=== PATIENT | male | born 1985 | race Caucasian/White ===

== ENCOUNTER 2017-01-10 06:20 | Emergency (ER) | payer MEDICAID ==
[2017-01-10 06:51] VITALS: BP 119/80
[2017-01-10 07:01] LABS: CHLORIDE,CL 105 mEq/L (98-106); SODIUM,NA 140 mEq/L (136-145)
--- NOTE | 2017-01-10 07:08 | EDM.PDOC ---
ED HPI GENERAL MEDICAL PROBLEM - General Chief Complaint: General Stated Complaint: CHEST PAIN Time Seen by Provider: 01/10/17 06:50 Source of Information: Reports: Patient History Limitations: Reports: No Limitations - History of Present Illness INITIAL COMMENTS - FREE TEXT/NARRATIVE: Woke up this morning feeling right sided chest pain. has been on ceftin for URI symptoms and has been having some nausea and upset stomach. No vomiting or diarrhea noted. "I feel weak". Does have a cough sometimes that is dry. Onset: Gradual Location: Reports: Chest, Abdomen Quality: Reports: Ache Associated Symptoms: Reports: Cough, Fever/Chills, Nausea/Vomiting. Denies: Rash Right Chest Pain Score (Numeric/FACES): 5 - Related Data Allergies Allergy/AdvReac Type Severity Reaction Status Date / Time Penicillins Allergy Anaphylactic Verified 01/10/17 06:32 Shock Home Meds: Home Meds buPROPion [Wellbutrin] 75 mg PO DAILY 09/15/16 [History] Cefuroxime [Ceftin] 250 mg PO BID 01/10/17 [History] Past Medical History - Past Health History Medical/Surgical History: Denies Medical/Surgical History Musculoskeletal History: Reports: Other (See Below) Other Musculoskeletal History: BACK INJURY 2002, right wrist swelling Psychiatric History: Reports: Depression - Past Surgical History GI Surgical History: Reports: Appendectomy Social & Family History - Family History Family Medical History: Noncontributory Cardiac: Reports: CAD, Hypertension Endocrine/Metabolic: Reports: Diabetes, type II - Tobacco Use Smoking Status *Q: Current Every Day Smoker Years of Tobacco use: 10 Packs/Tins Daily: 0.3 Used Tobacco, but Quit: No - Caffeine Use Caffeine Use: Reports: Soda - Alcohol Use Days Per Week of Alcohol Use: 0 Number of Drinks Per Day: 3 Total Drinks Per Week: 0 - Recreational Drug Use Recreational Drug Use: No - Living Situation & Occupation Living situation: Reports: , with Significant Other Occupation: Employed ED ROS GENERAL - Review of Systems Review Of Systems: See Below Constitutional: Denies: Fever, Chills Respiratory: Reports: Cough, Sputum (white) Cardiovascular: Reports: Chest Pain (right sided upper side) GI/Abdominal: Reports: Diarrhea, Nausea. Denies: Constipation, Vomiting Musculoskeletal: Reports: No Symptoms Skin: Reports: Rash Neurological: Denies: Headache ED EXAM, GENERAL - Physical Exam Exam: See Below Exam Limited By: No Limitations General Appearance: Alert, WD/WN, Mild Distress Ears: Normal Canal, Hearing Grossly Normal, Normal TMs Nose: Normal Inspection Throat/Mouth: Normal Inspection, Normal Oropharynx Head: Atraumatic, Normocephalic Neck: Normal Inspection, Supple, Non-Tender Respiratory/Chest: No Respiratory Distress, Lungs Clear, Normal Breath Sounds, Other (right upper chest wall is tender with palpation.) Cardiovascular: Regular Rate, Rhythm, No Edema GI/Abdominal: Normal Bowel Sounds, Soft, Non-Tender Extremities: No Pedal Edema Neurological: Alert, Oriented Skin Exam: Warm, Dry Course - Vital Signs Last Recorded V/S: Last Vital Signs Temp 99.9 F 01/10/17 06:48 Pulse 70 01/10/17 06:48 Resp 20 01/10/17 06:48 BP 119/80 01/10/17 06:48 Pulse Ox 95 01/10/17 06:48 - Orders/Labs/Meds Orders: Active Orders 24 hr Category Date Time Status EKG Documentation Completion [RC] STAT Care 01/10/17 06:37 Active Chest 2V [CR] Stat Exams 01/10/17 06:37 Ordered BASIC METABOLIC PANEL,BMP [CHEM] Stat Lab 01/10/17 06:37 Ordered CREATINE KINASE,CK [CHEM] Stat Lab 01/10/17 06:37 Ordered LACTATE DEHYDROGENASE,LDH [CHEM] Stat Lab 01/10/17 06:37 Ordered TROPONIN I [CHEM] Stat Lab 01/10/17 06:37 Ordered Labs: Laboratory Tests 01/10/17 Range/Units 06:40 WBC 8.1 (5.0-10.0) 10^3/uL RBC 4.76 (4.50-6.00) 10^6/uL Hgb 14.3 (14.0-18.0) g/dL Hct 40.9 (40.0-54.0) % MCV 85.9 (82.0-94.0) fL MCH 30.0 (27.0-32.0) pg MCHC 35.0 (33.0-38.0) g/dL RDW Coeff of Cyndi 12.5 (11.0-15.0) % Plt Count 224 (150-400) 10^3/uL Neut % (Auto) 75.2 (35-85) % Lymph % (Auto) 13.1 (10-55) % Rooks % (Auto) 9.0 (0-16) % Eos % (Auto) 2.6 (0-5) % Baso % (Auto) 0.1 (0-3) % Neut # (Auto) 6.06 (1.80-7.00) 10^3/uL Lymph # (Auto) 1.06 (1.00-4.80) 10^3/uL Rooks # (Auto) 0.73 (0.00-0.80) 10^3/uL Eos # (Auto) 0.21 (0.00-0.45) 10^3/uL Baso # (Auto) 0.01 10^3/uL - Re-Assessments/Exams Free Text/Narrative Re-Assessment/Exam: 01/10/17 07:14 Discussed normal EKG, CXR, and labs with pt Departure - Departure Time of Disposition: 07:14 Disposition: Home, Self-Care 01 Condition: good Clinical Impression: Chest wall pain - Discharge Information Forms: ED Department Discharge Additional Instructions: Ibuprophen or tylenol as needed for chest wall pain Stop antibiotics at this time as they may be causing the stomach upset Recheck in clinic if not improving or if symptoms change - Problem List & Annotations (1) Chest wall pain SNOMED Code(s): 790611334 Code(s): R07.89 - OTHER CHEST PAIN Status: Acute Priority: High Current Visit: Yes - Problem List Review Problem List Initiated/Reviewed/Updated: Yes - My Orders Last 24 Hours: My Active Orders 01/10/17 06:37 EKG Documentation Completion [RC] STAT Chest 2V [CR] Stat BASIC METABOLIC PANEL,BMP [CHEM] Stat CREATINE KINASE,CK [CHEM] Stat LACTATE DEHYDROGENASE,LDH [CHEM] Stat TROPONIN I [CHEM] Stat - Assessment/Plan Last 24 Hours: My Active Orders 01/10/17 06:37 EKG Documentation Completion [RC] STAT Chest 2V [CR] Stat BASIC METABOLIC PANEL,BMP [CHEM] Stat CREATINE KINASE,CK [CHEM] Stat LACTATE DEHYDROGENASE,LDH [CHEM] Stat TROPONIN I [CHEM] Stat
== END 2017-01-10 07:20 | disposition home or self-care (01) ==
LOC: CC.ED 06:20
DX: R07.89 Other chest pain (principal); F32.9 Major depressive disorder, single episode, unspecified; F17.210 Nicotine dependence, cigarettes, uncomplicated; Z88.0 Allergy status to penicillin; Z79.899 Other long term (current) drug therapy; Z90.49 Acquired absence of other specified parts of digestive tract
CPT/HCPCS: 36415; 71020; 80048; 82550; 83615; 84484; 85025; 93005; 99284

== ENCOUNTER 2017-05-01 18:55 | Emergency (ER) | payer MEDICAID ==
[2017-05-01] MEDS ORDERED: Acetaminophen/HYDROcodone 325-5 MG Tab PO ONE ×2 (18:56→19:34)
[2017-05-01 19:01] VITALS: BP 135/94
[2017-05-01] MEDS ORDERED: Take Home: Acetaminophen/HYDROcodone 325-5 MG, 2 Tab Pack PO ONE (19:30)
--- NOTE | 2017-05-01 19:35 | EDM.PDOC ---
ED HPI GENERAL MEDICAL PROBLEM - General Chief Complaint: General Stated Complaint: left tooth pain Time Seen by Provider: 05/01/17 19:19 Source of Information: Reports: Patient History Limitations: Reports: No Limitations - History of Present Illness INITIAL COMMENTS - FREE TEXT/NARRATIVE: JAQUELIN IS A 31 YO MALE WHO PRESENTS TO THE ER WITH COMPLAINTS OF UNBEARABLE PAIN SECONDARY TO DENTAL ABSCESS. STATES HE HAD A COUPLE TEETH PULLED ON FRIDAY AND DEVELOPED AN ABSCESS SINCE. STATES HE WAS SEEN BY DR. ROUSSEAU TODAY AND WAS GIVEN TORADOL AND ROCEPHIN INJECTION. STATES HE WAS SENT HOME WITH BACTRIM AND TORADOL TO BE TAKEN ORALLY. STATES HE COULDN'T BEAR THE PAIN ANYMORE AND WAS SEEN EARLY AFTERNOON TODAY BY THE DENTIST WHO DID A DENTAL BLOCK. STATES HE GOT ABOUT 3 HOURS OF RELIEF AND WAS ABLE TO SLEEP. SINCE THEN THE PAIN HAS WORSENED AGAIN. Left Tooth/Teeth Pain Score (Numeric/FACES): 10 - Related Data Allergies Allergy/AdvReac Type Severity Reaction Status Date / Time Penicillins Allergy Anaphylactic Verified 05/01/17 19:01 Shock Home Meds: Home Meds buPROPion [Wellbutrin] 75 mg PO DAILY 09/15/16 [History] Clindamycin HCl 150 mg PO TID 05/01/17 [History] Ketorolac [Toradol] 10 mg PO QID 05/01/17 [History] Past Medical History - Past Health History Medical/Surgical History: Denies Medical/Surgical History Musculoskeletal History: Reports: Other (See Below) Other Musculoskeletal History: BACK INJURY 2002, right wrist swelling Psychiatric History: Reports: Depression - Past Surgical History GI Surgical History: Reports: Appendectomy Social & Family History - Family History Family Medical History: Noncontributory Cardiac: Reports: CAD, Hypertension Endocrine/Metabolic: Reports: Diabetes, type II - Tobacco Use Smoking Status *Q: Current Every Day Smoker Years of Tobacco use: 14 Packs/Tins Daily: 0.2 Used Tobacco, but Quit: No - Caffeine Use Caffeine Use: Reports: Soda - Alcohol Use Days Per Week of Alcohol Use: 0 Number of Drinks Per Day: 3 Total Drinks Per Week: 0 - Recreational Drug Use Recreational Drug Use: No - Living Situation & Occupation Living situation: Reports: , with Significant Other Occupation: Employed ED ROS GENERAL - Review of Systems Review Of Systems: ROS reveals no pertinent complaints other than HPI. HEENT: Reports: Dental Pain ED EXAM, GENERAL - Physical Exam Exam: See Below Exam Limited By: No Limitations General Appearance: Alert, Mild Distress, Moderate Distress Ears: Normal External Exam, Normal Canal, Hearing Grossly Normal, Normal TMs Nose: Normal Inspection, No Blood Throat/Mouth: Normal Inspection, Normal Oropharynx, No Airway Compromise, Other (SIGNIFICANT DECAY OF TEETH, MULTIPLE BROKEN TEETH WITH TENDERNESS TO LEFT LOWER PREMOLAR. DENTAL ABSCESS FORMING. TENDERNESS WITH PALPATION ALONG LOWER JAW LINE. ) Head: Atraumatic, Facial Tenderness Neck: Normal Inspection, Supple, Non-Tender Respiratory/Chest: No Respiratory Distress, Lungs Clear Cardiovascular: Regular Rate, Rhythm, No Murmur Skin Exam: Warm, Dry, Intact, Normal Color. No: Increased Warmth Course - Vital Signs Last Recorded V/S: Last Vital Signs Temp 98.9 F 05/01/17 18:58 Pulse 92 05/01/17 18:58 Resp 20 05/01/17 18:58 BP 135/94 H 05/01/17 18:58 Pulse Ox 97 05/01/17 18:58 Departure - Departure Time of Disposition: 19:31 Disposition: Home, Self-Care 01 Condition: Good Clinical Impression: Broken or cracked tooth, nontraumatic, Tooth abscess - Discharge Information Instructions: Dental Abscess, [id number] Referrals: Karly Marie PA [Primary Care Provider] - 1 Day Additional Instructions: 1) NORCO 5/325 - 1 TABLET EVERY 4 HOURS NEEDED FOR PAIN 2) CONTINUE TAKING CLINDAMYCIN 3) RECOMMEND TAKING THE TORADOL 10MG EVERY 6-8 HOURS NEEDED FOR PAIN WELL 4) FOLLOW UP WITH PRIMARY PROVIDER TOMORROW FOR RECHECK IF ONGOING DISCOMFORT 5) IF ANY QUESTIONS OR CONCERNS, MAY CALL [phone] OR RETURN TO ER - Problem List & Annotations (1) Broken or cracked tooth, nontraumatic SNOMED Code(s): 683307175 Code(s): K03.81 - CRACKED TOOTH Status: Acute Current Visit: Yes (2) Tooth abscess SNOMED Code(s): 341747394 Code(s): K04.7 - PERIAPICAL ABSCESS WITHOUT SINUS Status: Acute Current Visit: Yes - Problem List Review Problem List Initiated/Reviewed/Updated: Yes - Assessment/Plan Plan: REVIEWED DR. ROUSSEAU'S NOTE FROM EARLIER TODAY. ADVISE SEEING PRIMARY PROVIDER TOMORROW FOR FOLLOW UP. MAY TAKE NORCO NEEDED FOR DISCOMFORT EVERY 4 HOURS, 4 TABLETS DISPENSED. FINISH ANTIBIOTICS PRESCRIBED BY DENTIST TODAY WELL.
== END 2017-05-01 19:45 | disposition home or self-care (01) ==
LOC: CC.ED 18:55
DX: K04.7 Periapical abscess without sinus (principal); K03.81 Cracked tooth; F32.9 Major depressive disorder, single episode, unspecified; F17.210 Nicotine dependence, cigarettes, uncomplicated; Z90.49 Acquired absence of other specified parts of digestive tract; Z79.899 Other long term (current) drug therapy; Z88.0 Allergy status to penicillin
CPT/HCPCS: 99282; A9270

== ENCOUNTER 2017-07-18 15:08 | Emergency (ER) | payer MEDICAID ==
--- NOTE | 2017-07-18 15:27 | EDM.PDOC ---
ED HPI GENERAL MEDICAL PROBLEM - General Chief Complaint: Chest Pain Stated Complaint: CP Time Seen by Provider: 07/18/17 15:27 Source of Information: Reports: Patient History Limitations: Reports: No Limitations - History of Present Illness INITIAL COMMENTS - FREE TEXT/NARRATIVE: Rey is a 31 year old male who presents to the ER with complaints of mid sternal chest pain radiating to his left arm. He reports it started yesterday evening around 1900 and has been constant since. He reports he does feel some shortness of breath. Reports he was able to work today, but had to take multiple breaks as he felt fatigued. He reports he also feels weak. He reports he struggled to pick up man larger boxes today that he normally wouldn't have a problem with. Denies any fever, chills, diaphoresis, nausea, vomiting, diarrhea , urinary symptoms, or recent illness. Has not taken anything prior to ER presentation. No identified alleviating or aggravating factors. Reports he did not eat anything out of the ordinary. Reports he did not eat larger Thanksgiving meal yesterday. Denies history of reflux. He does report that he is supposed to be on an anxiety medication daily, but he has "not been very good about taking it." He does report increased stress and anxiety in his life recently. Onset Date: 07/17/17 Onset Time: 19:00 Duration: Constant Location: Reports: Chest Quality: Reports: Ache, Sharp Severity: Moderate Improves with: Reports: None Worsens with: Reports: None Associated Symptoms: Reports: Chest Pain, Shortness of Breath, Weakness. Denies : Confusion, Cough, cough w sputum, Diaphoresis, Fever/Chills, Headaches, Loss of Appetite, Malaise, Nausea/Vomiting, Rash, Seizure, Syncope Upper Chest Pain Score (Numeric/FACES): 6 - Related Data Allergies Allergy/AdvReac Type Severity Reaction Status Date / Time Penicillins Allergy Anaphylactic Verified 07/18/17 15:45 Shock Home Meds: Home Meds buPROPion [Wellbutrin] 75 mg PO DAILY 09/15/16 [History] LORazepam [Ativan] 0.5 mg PO TID PRN #10 tablet 07/18/17 [Rx] Past Medical History - Past Health History Medical/Surgical History: Denies Medical/Surgical History Musculoskeletal History: Reports: Other (See Below) Other Musculoskeletal History: BACK INJURY 2002, right wrist swelling Psychiatric History: Reports: Depression - Past Surgical History GI Surgical History: Reports: Appendectomy Social & Family History - Family History Family Medical History: Noncontributory Cardiac: Reports: CAD, Hypertension Endocrine/Metabolic: Reports: Diabetes, type II - Tobacco Use Smoking Status *Q: Current Every Day Smoker Years of Tobacco use: 14 Packs/Tins Daily: 0.2 Used Tobacco, but Quit: No - Caffeine Use Caffeine Use: Reports: Soda - Alcohol Use Days Per Week of Alcohol Use: 0 Number of Drinks Per Day: 3 Total Drinks Per Week: 0 - Recreational Drug Use Recreational Drug Use: No - Living Situation & Occupation Living situation: Reports: , with Significant Other Occupation: Employed ED ROS GENERAL - Review of Systems Review Of Systems: See Below Constitutional: Reports: Weakness, Fatigue. Denies: Fever, Chills, Malaise, Diaphoresis HEENT: Reports: No Symptoms. Denies: Ear Pain, Rhinitis, Sinus Problem, Vision Change Respiratory: Reports: Shortness of Breath. Denies: Wheezing, Pleuritic Chest Pain, Cough, Sputum, Hemoptysis Cardiovascular: Reports: Chest Pain, Dyspnea on Exertion. Denies: Blood Pressure Problem, Claudication, Edema, Lightheadedness, Orthopnea, Palpitations , Syncope Endocrine: Reports: Fatigue GI/Abdominal: Denies: Abdominal Pain, Anorexia, Constipation, Diarrhea, Decreased Appetite, Hematemesis, Hematochezia, Melena, Nausea, Vomiting : Reports: No Symptoms Neurological: Reports: No Symptoms. Denies: Confusion, Dizziness, Headache, Numbness, Syncope, Tingling Psychiatric: Reports: Anxiety, Depression Hematologic/Lymphatic: Reports: No Symptoms Immunologic: Reports: No Symptoms ED EXAM, GENERAL - Physical Exam Exam: See Below Exam Limited By: No Limitations General Appearance: Alert, WD/WN, No Apparent Distress Eye Exam: Bilateral Eye: EOMI, Normal Fundi, Normal Inspection, PERRL Head: Atraumatic, Normocephalic Respiratory/Chest: No Respiratory Distress, Lungs Clear, Normal Breath Sounds, No Accessory Muscle Use, Chest Non-Tender Cardiovascular: Normal Peripheral Pulses, Regular Rate, Rhythm, No Edema, No Gallop, No JVD, No Murmur, No Rub GI/Abdominal: Normal Bowel Sounds, Soft, Non-Tender, No Organomegaly, No Distention, No Abnormal Bruit, No Mass Back Exam: Normal Inspection, Full Range of Motion, NT Extremities: Normal Inspection, Normal Range of Motion, Non-Tender, Normal Capillary Refill, No Pedal Edema Neurological: Alert, Oriented, CN II-XII Intact, Normal Cognition, Normal Gait, Normal Reflexes, No Motor/Sensory Deficits Psychiatric: Anxious Skin Exam: Warm, Dry, Intact, Normal Color, No Rash Course - Vital Signs Last Recorded V/S: Last Vital Signs Temp 97.4 F 07/18/17 15:11 Pulse 49 L 07/18/17 16:04 Resp 18 07/18/17 16:04 BP 121/80 07/18/17 16:04 Pulse Ox 96 07/18/17 16:04 - Orders/Labs/Meds Labs: Laboratory Tests 07/18/17 07/18/17 07/18/17 Range/Units 15:14 15:14 15:14 WBC 6.6 (5.0-10.0) 10^3/uL RBC 4.86 (4.50-6.00) 10^6/uL Hgb 14.5 (14.0-18.0) g/dL Hct 42.1 (40.0-54.0) % MCV 86.6 (82.0-94.0) fL MCH 29.8 (27.0-32.0) pg MCHC 34.4 (33.0-38.0) g/dL RDW Coeff of Cyndi 13.5 (11.0-15.0) % Plt Count 241 (150-400) 10^3/uL Neut % (Auto) 59.1 (35-85) % Lymph % (Auto) 27.9 (10-55) % Elk % (Auto) 8.9 (0-16) % Eos % (Auto) 3.9 (0-5) % Baso % (Auto) 0.2 (0-3) % Neut # (Auto) 3.90 (1.80-7.00) 10^3/uL Lymph # (Auto) 1.84 (1.00-4.80) 10^3/uL Elk # (Auto) 0.59 (0.00-0.80) 10^3/uL Eos # (Auto) 0.26 (0.00-0.45) 10^3/uL Baso # (Auto) 0.01 10^3/uL PT 10.5 (9.7-12.3) SEC INR 0.97 (0.92-1.18) APTT 24.1 L (24.5-30.9) SEC Sodium 143 (136-145) mEq/L Potassium 4.1 (3.5-5.0) mEq/L Chloride 107 H (98-106) mEq/L Carbon Dioxide 29 (21-32) mmol/L BUN 15 (7-18) mg/dL Creatinine 1.2 (0.7-1.3) mg/dL Est Cr Clr Drug Dosing 102.75 mL/min Estimated GFR (MDRD) > 60 (>=60) mL/min Glucose 86 (75-99) mg/dL Calcium 9.2 (8.4-10.1) mg/dL Lactate Dehydrogenase 180 (100-190) U/L Creatine Kinase 211 (35-232) U/L Troponin I < 0.017 (0.00-0.06) ng/mL - Re-Assessments/Exams Free Text/Narrative Re-Assessment/Exam: 07/18/17 16:20 Discussed labs, EKG, and CXR with patient. Everything looks normal. Patient's vital signs have remained normal throughout stay. Departure - Departure Time of Disposition: 16:24 Disposition: Home, Self-Care 01 Condition: Good Clinical Impression: Chest pain due to psychological stress, Anxiety Prescriptions: LORazepam [Ativan] 0.5 mg PO TID PRN #10 tablet PRN Reason: Anxiety Instructions: Panic Attacks, [id number], Nonspecific Chest Pain Referrals: Karly Marie PA [Primary Care Provider] - Forms: ED Department Discharge Additional Instructions: Chest pain is not of cardiac origin. Discussed that chest pain is likely related to anxiety. Ativan as needed to use through the weekend for anxiety and panic attack type symptoms. Discussed that wellbutrin needs to be taken daily to be effective. Tylenol or ibuprofen as needed for cifuentes May trial taking some OTC omeprazole for the next week if chest pain continues. Follow up with primary care provider to address anxiety.
[2017-07-18 15:35] LABS: CHLORIDE,CL 107 mEq/L (98-106); SODIUM,NA 143 mEq/L (136-145)
[2017-07-18 16:05] VITALS: BP 121/80
== END 2017-07-18 16:34 | disposition home or self-care (01) ==
LOC: CC.ED 15:08
DX: R07.2 Precordial pain (principal); F41.9 Anxiety disorder, unspecified; F32.9 Major depressive disorder, single episode, unspecified; F17.210 Nicotine dependence, cigarettes, uncomplicated; Z79.899 Other long term (current) drug therapy; Z88.0 Allergy status to penicillin
CPT/HCPCS: 36415; 71020; 80048; 82550; 83615; 84484; 85025; 85610; 85730; 93005; 99285

== ENCOUNTER 2017-07-27 03:30 | Emergency (ER) | payer MEDICAID ==
[2017-07-27 03:50] VITALS: BP 134/94
[2017-07-27] MEDS ORDERED: Lactated Ringers 1,000 ML IV SCH (04:15)
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
[2017-07-27 07:27] LABS: CHLORIDE,CL 103 mEq/L (98-106); SODIUM,NA 141 mEq/L (136-145)
== END 2017-07-27 11:40 ==
LOC: CC.ED 03:30
DX: R45.851 Suicidal ideations (principal); F41.9 Anxiety disorder, unspecified; F32.9 Major depressive disorder, single episode, unspecified; Z88.0 Allergy status to penicillin; E66.9 Obesity, unspecified; F17.210 Nicotine dependence, cigarettes, uncomplicated
CPT/HCPCS: 36415; 80053; 80305; 81001; 85025; 86140; 96360; 96361; 99284; J7120

== ENCOUNTER 2020-07-07 15:58 | Emergency (ER) | payer SELFPAY ==
[2020-07-07 16:06] VITALS: BP 135/85; PULSE 60
[2020-07-07 16:53] LABS: CHLORIDE,CL 102 mEq/L (98-106); SODIUM,NA 139 mEq/L (136-145)
--- NOTE | 2020-07-07 17:07 | EDM.PDOC ---
ED HPI GENERAL MEDICAL PROBLEM - General Chief Complaint: General Stated Complaint: SOB, Chest Congestion Time Seen by Provider: 07/07/20 16:14 Source of Information: Reports: Patient History Limitations: Reports: No Limitations - History of Present Illness INITIAL COMMENTS - FREE TEXT/NARRATIVE: This patient is a 34 year old male that presents to the ER. Patient reports for 3 days having headache, congestion, cough dry, chills, fatigue, chest pain. Onset Date: 07/04/20 Duration: Day(s): (3) Location: Reports: Head, Chest Quality: Reports: Ache Severity: Mild Improves with: Reports: None Worsens with: Reports: None Associated Symptoms: Reports: Chest Pain, Cough, Fever/Chills, Headaches, Malaise. Denies: Confusion, cough w sputum, Diaphoresis, Loss of Appetite, Nausea/Vomiting, Rash, Seizure, Shortness of Breath, Syncope, Weakness chest Pain Score (Numeric/FACES): 5 - Related Data Allergies Allergy/AdvReac Type Severity Reaction Status Date / Time Penicillins Allergy Anaphylactic Verified 07/07/20 16:06 Shock Home Meds: Home Meds . [No Known Home Meds] 07/07/20 [History] Past Medical History - Past Health History Medical/Surgical History: Denies Medical/Surgical History Gastrointestinal History: Reports: GERD Musculoskeletal History: Reports: Other (See Below) Other Musculoskeletal History: BACK INJURY 2002, right wrist swelling Neurological History: Reports: Concussion Psychiatric History: Reports: Anxiety, Depression Endocrine/Metabolic History: Reports: Obesity/BMI 30+ - Past Surgical History HEENT Surgical History: Reports: Myringotomy w Tube(s), Tonsillectomy GI Surgical History: Reports: Appendectomy Endocrine Surgical History: Reports: None Neurological Surgical History: Reports: None Musculoskeletal Surgical History: Reports: None Social & Family History - Family History Family Medical History: No Pertinent Family History Cardiac: Reports: CAD, Hypertension Endocrine/Metabolic: Reports: Diabetes, type II - Tobacco Use Tobacco Use Status *Q: Current Every Day Tobacco User Years of Tobacco use: 15 Packs/Tins Daily: 0.5 - Caffeine Use Caffeine Use: Reports: None - Recreational Drug Use Recreational Drug Use: No - Living Situation & Occupation Living situation: Reports: , with Significant Other Occupation: Employed ED ROS GENERAL - Review of Systems Review Of Systems: See Below Constitutional: Reports: Fever, Chills, Malaise, Fatigue HEENT: Reports: Rhinitis, Sinus Problem Respiratory: Reports: Pleuritic Chest Pain, Cough. Denies: Shortness of Breath, Wheezing, Sputum Cardiovascular: Reports: Chest Pain. Denies: Dyspnea on Exertion, L ightheadedness, Palpitations, Syncope Endocrine: Reports: No Symptoms GI/Abdominal: Reports: No Symptoms. Denies: Abdominal Pain, Nausea, Vomiting : Reports: No Symptoms Musculoskeletal: Reports: No Symptoms Skin: Reports: No Symptoms Neurological: Reports: Headache Psychiatric: Reports: No Symptoms Hematologic/Lymphatic: Reports: No Symptoms Immunologic: Reports: No Symptoms ED EXAM, GENERAL - Physical Exam Exam: See Below Exam Limited By: Uncooperative General Appearance: WD/WN, No Apparent Distress Eye Exam: Bilateral Eye: Normal Inspection, PERRL Ears: Normal External Exam, Normal Canal, Hearing Grossly Normal, Normal TMs Ear Exam: Bilateral Ear: Auricle Normal, Canal Normal, TM normal Nose: Normal Inspection, Normal Mucosa, No Blood Throat/Mouth: Normal Inspection, Normal Lips, Normal Teeth, Normal Gums, Normal Oropharynx, Normal Voice, No Airway Compromise Head: Atraumatic, Normocephalic Neck: Normal Inspection, Supple, Non-Tender, Full Range of Motion Respiratory/Chest: No Respiratory Distress, Lungs Clear, Normal Breath Sounds, No Accessory Muscle Use, Chest Non-Tender Cardiovascular: Normal Peripheral Pulses, Regular Rate, Rhythm, No Edema, No Gallop, No JVD, No Murmur, No Rub Peripheral Pulses: 2+: Radial (L), Radial (R), Posterior Tibial (L), Posterior Tibial (R) GI/Abdominal: Soft, Non-Tender Back Exam: Normal Inspection, Full Range of Motion Extremities: Normal Inspection, Normal Range of Motion, Non-Tender, No Pedal Edema, Normal Capillary Refill Neurological: Alert, Normal Cognition, Normal Gait Psychiatric: Anxious Skin Exam: Warm, Dry, Intact, Normal Color, No Rash Lymphatic: No Adenopathy Course - Vital Signs Last Recorded V/S: Last Vital Signs Temp 97.6 F 07/07/20 16:00 Pulse 60 07/07/20 16:00 Resp 18 07/07/20 16:00 BP 135/85 07/07/20 16:00 Pulse Ox 99 07/07/20 16:00 - Orders/Labs/Meds Orders: Active Orders 24 hr Category Date Time Status Chest 2V [CR] Stat Exams 07/07/20 15:59 Taken Labs: Laboratory Tests 07/07/20 07/07/20 07/07/20 Range/Units 15:59 16:16 16:16 WBC 5.7 (5.0-10.0) 10^3/uL RBC 4.86 (4.50-6.00) 10^6/uL Hgb 14.5 (14.0-18.0) g/dL Hct 41.6 (40.0-54.0) % MCV 85.6 (82.0-94.0) fL MCH 29.8 (27.0-32.0) pg MCHC 34.9 (33.0-38.0) g/dL RDW Coeff of Cyndi 13.0 (11.0-15.0) % Plt Count 244 (150-400) 10^3/uL Neut % (Auto) 57.5 (35-85) % Lymph % (Auto) 30.8 (10-55) % [place] % (Auto) 8.6 (0-16) % Eos % (Auto) 2.6 (0-5) % Baso % (Auto) 0.5 (0-3) % Neut # (Auto) 3.29 (1.80-7.00) 10^3/uL Lymph # (Auto) 1.76 (1.00-4.80) 10^3/uL [place] # (Auto) 0.49 (0.00-0.80) 10^3/uL Eos # (Auto) 0.15 (0.00-0.45) 10^3/uL Baso # (Auto) 0.03 10^3/uL Sodium 139 (136-145) mEq/L Potassium 3.5 (3.5-5.0) mEq/L Chloride 102 (98-106) mEq/L Carbon Dioxide 27 (21-32) mmol/L BUN 15 (7-18) mg/dL Creatinine 0.9 (0.7-1.3) mg/dL Est Cr Clr Drug Dosing 133.19 mL/min Estimated GFR (MDRD) > 60 (>=60) mL/min Glucose 90 (75-99) mg/dL Calcium 8.9 (8.4-10.1) mg/dL Total Bilirubin 0.4 (0.0-1.0) mg/dL AST 24 (15-37) U/L ALT 29 (12-78) U/L Alkaline Phosphatase 79 (46-116) U/L Creatine Kinase 257 H (35-232) U/L Troponin I < 0.017 (0.00-0.06) ng/mL Total Protein 7.6 (6.4-8.2) g/dL Albumin 4.0 (3.4-5.0) g/dL SARS CoV-2 RNA Rapid ZACEKRY Negative (NEGATIVE) - Re-Assessments/Exams Free Text/Narrative Re-Assessment/Exam: 07/07/20 17:11 Wells score 0. Heart score 0. Oxygen saturation is 99% on RA. No distress, not toxic appearing. Departure - Departure Time of Disposition: 17:02 Disposition: Home, Self-Care 01 Condition: Good Clinical Impression: Viral URI, Anxiety Fatigue Qualifiers: Fatigue type: unspecified Qualified Code(s): R53.83 - Other fatigue Chest pain Qualifiers: Chest pain type: unspecified Qualified Code(s): R07.9 - Chest pain, unspecified - Discharge Information *PRESCRIPTION DRUG MONITORING PROGRAM REVIEWED*: Not Applicable *COPY OF PRESCRIPTION DRUG MONITORING REPORT IN PATIENT STEVE: Not Applicable Instructions: Fatigue, Viral Respiratory Infection, [id number], Nonspecific Chest Pain, Adult Referrals: Karly Marie PA [Primary Care Provider] - Forms: ED Department Discharge Additional Instructions: Followup with your primary care provider Return to the ER for worsening of condition or any emergent concerns OTC medications as needed Sepsis Event Note (ED) - Evaluation Sepsis Screening Result: No Definite Risk - Focused Exam Vital Signs: Vital Signs Temp Pulse Resp BP Pulse Ox 07/07/20 16:00 97.6 F 60 18 135/85 99 - My Orders Last 24 Hours: My Active Orders 07/07/20 15:59 Chest 2V [CR] Stat - Assessment/Plan Last 24 Hours: My Active Orders 07/07/20 15:59 Chest 2V [CR] Stat Plan: PLEASE SEE RN NOTE FOR PFSH.
== END 2020-07-07 17:46 | disposition home or self-care (01) ==
LOC: CC.ED 15:58
DX: J06.9 Acute upper respiratory infection, unspecified (principal); R53.83 Other fatigue; R07.9 Chest pain, unspecified; F41.9 Anxiety disorder, unspecified; E66.9 Obesity, unspecified; F17.210 Nicotine dependence, cigarettes, uncomplicated; Z68.38 Body mass index [BMI] 38.0-38.9, adult; Z20.828 Contact with and (suspected) exposure to other viral communicable diseases; Z88.0 Allergy status to penicillin
CPT/HCPCS: 36415; 71046; 80053; 82550; 84484; 85025; 93005; 99285-25; U0002

== ENCOUNTER 2020-09-06 20:33 | Emergency (ER) | payer OTHER, BC ==
[2020-09-06 20:38] VITALS: BP 145/95; PULSE 64
[2020-09-06] MEDS ORDERED: Ketorolac 10 MG Tab ONE (20:49)
[2020-09-06] MEDS ORDERED: Cyclobenzaprine 10 MG Tab ONE (20:49)
[2020-09-06] MEDS ORDERED: Orphenadrine 60 MG/2 ML Inj IM ONE (20:50)
[2020-09-06] MEDS ORDERED: Ketorolac 60 MG/2 ML SDV IM ONE (20:50)
[2020-09-06] MEDS ORDERED: Take Home: Ketorolac 10 MG Tab, 4 Tab Pack PO ONE (20:55)
[2020-09-06] MEDS ORDERED: Take Home: Cyclobenzaprine 10 MG Tab, 4 Tab Pack PO ONE (20:55)
--- NOTE | 2020-09-06 20:57 | EDM.PDOC ---
ED HPI GENERAL MEDICAL PROBLEM - General Chief Complaint: Back Pain or Injury Stated Complaint: back pain Time Seen by Provider: 09/06/20 20:45 Source of Information: Reports: Patient History Limitations: Reports: No Limitations - History of Present Illness INITIAL COMMENTS - FREE TEXT/NARRATIVE: Rey is a 35 year old who presents to ER with complaints of right lower back pain. 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 States several bags were stuck together and he "must have twisted wrong". Has had increasing back pain to the right lower lumbar region and hip. Complains of pain that "tingles in to his right buttock with sitting". Difficulty with fully standing from a chair or extension of his back. Onset: Today, Gradual Duration: Hour(s):, Getting Worse Location: Reports: Back Quality: Reports: Ache Severity: Moderate Improves with: Reports: Rest Worsens with: Reports: Movement Context: Reports: Lifting Associated Symptoms: Reports: No Other Symptoms Treatments [employer] SALES: Reports: NSAIDS Right Lower Back Pain Score (Numeric/FACES): 7 - Related Data Allergies Allergy/AdvReac Type Severity Reaction Status Date / Time Penicillins Allergy Anaphylactic Verified 09/06/20 20:38 Shock Home Meds: Home Meds Cyclobenzaprine [Flexeril] 10 mg PO TID PRN #30 tab 09/06/20 [Rx] Ketorolac [Toradol] 10 mg PO Q6H PRN #20 tab 09/06/20 [Rx] Past Medical History - Past Health History Medical/Surgical History: Denies Medical/Surgical History Gastrointestinal History: Reports: GERD Musculoskeletal History: Reports: Other (See Below) Other Musculoskeletal History: BACK INJURY 2002, right wrist swelling Neurological History: Reports: Concussion Psychiatric History: Reports: Anxiety, Depression Endocrine/Metabolic History: Reports: Obesity/BMI 30+ - Past Surgical History HEENT Surgical History: Reports: Myringotomy w Tube(s), Tonsillectomy GI Surgical History: Reports: Appendectomy Endocrine Surgical History: Reports: None Neurological Surgical History: Reports: None Musculoskeletal Surgical History: Reports: None Social & Family History - Family History Family Medical History: No Pertinent Family History Cardiac: Reports: CAD, Hypertension Endocrine/Metabolic: Reports: Diabetes, type II - Tobacco Use Tobacco Use Status *Q: Current Every Day Tobacco User - Caffeine Use Caffeine Use: Reports: None - Living Situation & Occupation Living situation: Reports: , with Significant Other Occupation: Employed ED ROS GENERAL - Review of Systems Review Of Systems: See Below Constitutional: Reports: No Symptoms HEENT: Reports: No Symptoms Respiratory: Denies: Shortness of Breath Cardiovascular: Denies: Chest Pain, Edema, Lightheadedness Endocrine: Denies: Fatigue GI/Abdominal: Denies: Abdominal Pain, Nausea, Vomiting : Reports: No Symptoms Musculoskeletal: Reports: Back Pain Skin: Reports: No Symptoms ED EXAM,LOWER BACK PAIN/INJURY - Physical Exam Exam: See Below Exam Limited By: No Limitations General Appearance: Alert, WD/WN, Mild Distress Head: Normocephalic Neck: Normal Inspection, Supple, Non-Tender Respiratory/Chest: No Respiratory Distress, Lungs Clear, Normal Breath Sounds Cardiovascular: Regular Rate, Rhythm Back Exam: Normal Inspection, Decreased Range of Motion, Muscle Spasm, Paraspinal Tenderness (discomfort to right lumbar paraspinal region. Pain with extension. Able to flex 45 degrees before pain. Strength is good and equal in lower extremities. ). No: Vertebral Tenderness Extremities: Normal Inspection, No Pedal Edema Skin Exam: Warm, Dry Course - Vital Signs Last Recorded V/S: Last Vital Signs Temp 96.6 F L 09/06/20 20:34 Pulse 64 09/06/20 20:34 Resp 15 09/06/20 20:34 BP 145/95 H 09/06/20 20:34 Pulse Ox 99 09/06/20 20:34 Departure - Departure Time of Disposition: 20:57 Disposition: Home, Self-Care 01 Condition: Fair Clinical Impression: Low back pain - Discharge Information *PRESCRIPTION DRUG MONITORING PROGRAM REVIEWED*: No *COPY OF PRESCRIPTION DRUG MONITORING REPORT IN PATIENT STEVE: No Instructions: Acute Back Pain, Adult Referrals: PCP,Unknown [Primary Care Provider] - Additional Instructions: 1. Rest 2. Ice frequently tonight 3. Flexeril 10 mg every 8 hours as needed for muscle spasms 4. Toradol 10 mg every 6 hours as needed for pain/inflammation 5. Follow up next Friday am in NR for recheck 6. No lifting more than 20# until recheck visit Sepsis Event Note (ED) - Evaluation Sepsis Screening Result: No Definite Risk - Focused Exam Vital Signs: Vital Signs Temp Pulse Resp BP Pulse Ox 09/06/20 20:34 96.6 F L 64 15 145/95 H 99
== END 2020-09-06 21:25 | disposition home or self-care (01) ==
LOC: CC.ED 20:33
DX: M54.5 Low back pain (principal); M25.551 Pain in right hip; E66.9 Obesity, unspecified; F17.200 Nicotine dependence, unspecified, uncomplicated; Z88.0 Allergy status to penicillin; Z68.41 Body mass index [BMI] 40.0-44.9, adult
CPT/HCPCS: 96372; 99283; A9270-GY; J1885; J2360

== ENCOUNTER 2020-12-04 12:10 | Emergency (ER) | payer BC ==
[2020-12-04] MEDS ORDERED: Aspirin 81 MG Tab.Chew PO ONE (12:35)
[2020-12-04 12:38] LABS: CHLORIDE,CL 103 mEq/L (98-106); SODIUM,NA 140 mEq/L (136-145)
[2020-12-04] MEDS ORDERED: Ketorolac 30 MG/ML SDV IVPUSH ONE (12:56)
--- NOTE | 2020-12-04 12:58 | EDM.PDOC ---
ED HPI GENERAL MEDICAL PROBLEM - General Chief Complaint: Chest Pain Stated Complaint: CP, SOB Time Seen by Provider: 12/04/20 12:45 Source of Information: Reports: Patient History Limitations: Reports: No Limitations - History of Present Illness INITIAL COMMENTS - FREE TEXT/NARRATIVE: This patient is a 35 year old male patient that presents to the ER. Patient reports that started last night he was having central chest pain. Patient reports his chest pain is worse when he moves and when he pushes on it. Patient reports that he also has been feeling short of breath the past couple of days. Patient reports that 2 days ago he had nausea and vomited x2 at work and that seemed to have gotten better. Patient reports for 2 days having headache, dizziness. Patient reports also having chills at times. The patient reports that in the past, about more than a year ago per patient that he had the same pain in his chest. He reports he was seen for it and had cardiac workup and holtor monitor and it was all negative. Patient reports it feels the same as then. Patient denies any injury or lifting injury. Onset Date: 12/03/20 Onset Time: 20:00 Location: Reports: Chest Quality: Reports: Throbbing Severity: Moderate Improves with: Reports: Rest Worsens with: Reports: Other (palpation), Movement Associated Symptoms: Reports: Chest Pain, Headaches, Nausea/Vomiting (2 days ago, x2 vomiting.), Shortness of Breath. Denies: Confusion, Cough, cough w sputum, Diaphoresis, Fever/Chills, Loss of Appetite, Malaise, Rash, Seizure, Syncope, Weakness Chest Pain Score (Numeric/FACES): 7 - Related Data Allergies Allergy/AdvReac Type Severity Reaction Status Date / Time Penicillins Allergy Anaphylactic Verified 12/04/20 12:38 Shock Home Meds: Home Meds ALPRAZolam [Alprazolam] 0.25 mg PO DAILY PRN 12/04/20 [History] Escitalopram Oxalate 5 mg PO DAILY 12/04/20 [History] Past Medical History - Past Health History Medical/Surgical History: Denies Medical/Surgical History Gastrointestinal History: Reports: GERD Musculoskeletal History: Reports: Other (See Below) Other Musculoskeletal History: BACK INJURY 2002, right wrist swelling Neurological History: Reports: Concussion Psychiatric History: Reports: Anxiety, Depression Endocrine/Metabolic History: Reports: Obesity/BMI 30+ - Past Surgical History HEENT Surgical History: Reports: Myringotomy w Tube(s), Tonsillectomy GI Surgical History: Reports: Appendectomy Endocrine Surgical History: Reports: None Neurological Surgical History: Reports: None Musculoskeletal Surgical History: Reports: None Social & Family History - Family History Family Medical History: No Pertinent Family History Cardiac: Reports: CAD, Hypertension Endocrine/Metabolic: Reports: Diabetes, type II - Tobacco Use Tobacco Use Status *Q: Current Every Day Tobacco User Years of Tobacco use: 18 Packs/Tins Daily: 0.5 - Caffeine Use Caffeine Use: Reports: Soda - Living Situation & Occupation Living situation: Reports: , with Significant Other Occupation: Employed ED ROS GENERAL - Review of Systems Review Of Systems: See Below Constitutional: Reports: Chills, Malaise. Denies: Fever, Weakness, Fatigue HEENT: Reports: No Symptoms Respiratory: Reports: Shortness of Breath, Cough ("but is smoke, i cough a lot, but its a smoker cough"). Denies: Wheezing, Pleuritic Chest Pain, Sputum Cardiovascular: Reports: Chest Pain, Lightheadedness. Denies: Blood Pressure Problem, Dyspnea on Exertion, Edema, Palpitations, Syncope Endocrine: Reports: No Symptoms GI/Abdominal: Reports: Nausea (2 days ago resolved), Vomiting (2 days ago resolved). Denies: Abdominal Pain : Reports: No Symptoms Musculoskeletal: Reports: No Symptoms Skin: Reports: No Symptoms Neurological: Reports: Dizziness, Headache Psychiatric: Reports: No Symptoms Hematologic/Lymphatic: Reports: No Symptoms Immunologic: Reports: No Symptoms ED EXAM, GENERAL - Physical Exam Exam: See Below Exam Limited By: No Limitations General Appearance: Alert, WD/WN, No Apparent Distress, Anxious Eye Exam: Bilateral Eye: Normal Inspection, PERRL Ears: Normal External Exam, Normal Canal, Hearing Grossly Normal, Normal TMs Ear Exam: Bilateral Ear: Auricle Normal, Canal Normal, TM normal Nose: Normal Inspection, Normal Mucosa, No Blood Throat/Mouth: Normal Inspection, Normal Lips, Normal Teeth, Normal Gums, Normal Oropharynx, Normal Voice, No Airway Compromise Head: Atraumatic, Normocephalic Neck: Normal Inspection, Supple, Non-Tender, Full Range of Motion Respiratory/Chest: No Respiratory Distress, Lungs Clear, Normal Breath Sounds, No Accessory Muscle Use, Other (Chest wall tenderness anterior. Pain is easily manipulated with palpation and twisting/turning of the patient chest. ) Cardiovascular: Normal Peripheral Pulses, Regular Rate, Rhythm (64 on exam. Does have periods of bradycardia as low as 48 at times. ), No Edema, No Gallop, No JVD, No Murmur, No Rub Peripheral Pulses: 2+: Radial (L), Radial (R), Posterior Tibial (L), Posterior Tibial (R) GI/Abdominal: Normal Bowel Sounds, Soft, Non-Tender, No Organomegaly, No Distention, No Abnormal Bruit, No Mass, Pelvis Stable (Male) Exam: Deferred Rectal (Males) Exam: Deferred Back Exam: Normal Inspection, Full Range of Motion Extremities: Normal Inspection, Normal Range of Motion, Non-Tender, No Pedal Edema, Normal Capillary Refill Neurological: Alert, Oriented, Normal Cognition, Normal Gait, No Motor/Sensory Deficits Psychiatric: Anxious Skin Exam: Warm, Dry, Intact, Normal Color, No Rash Lymphatic: No Adenopathy Course - Vital Signs Last Recorded V/S: Last Vital Signs Temp 97.0 F 12/04/20 12:21 Pulse 57 L 12/04/20 13:45 Resp 20 12/04/20 13:45 BP 131/84 12/04/20 13:45 Pulse Ox 96 12/04/20 13:45 Orthostatic Blood Pressure [ 130/94 Standing] Orthostatic Blood Pressure [ 131/88 Sitting] Orthostatic Blood Pressure [ 133/86 Supine] - Orders/Labs/Meds Orders: Active Orders 24 hr Category Date Time Status EKG Documentation Completion [RC] STAT Care 12/04/20 12:16 Active Orthostatic Vital Signs [RC] ASDIRECTED Care 12/04/20 12:56 Active Cardiolite Stress Test [Myocardial Perf Spect Multi] [ Exams 12/04/20 14:22 Ordered NM] Stat Chest 2V [CR] Stat Exams 12/04/20 12:49 Taken Labs: Laboratory Tests 12/04/20 12/04/20 12/04/20 Range/Units 12:19 12:19 12:19 WBC 6.0 (5.0-10.0) 10^3/uL RBC 5.11 (4.50-6.00) 10^6/uL Hgb 15.4 (14.0-18.0) g/dL Hct 43.9 (40.0-54.0) % MCV 85.9 (82.0-94.0) fL MCH 30.1 (27.0-32.0) pg MCHC 35.1 (33.0-38.0) g/dL RDW Coeff of Cyndi 12.9 (11.0-15.0) % Plt Count 252 (150-400) 10^3/uL Neut % (Auto) 55.0 (35-85) % Lymph % (Auto) 31.0 (10-55) % [place] % (Auto) 10.0 (0-16) % Eos % (Auto) 3.8 (0-5) % Baso % (Auto) 0.2 (0-3) % Neut # (Auto) 3.30 (1.80-7.00) 10^3/uL Lymph # (Auto) 1.86 (1.00-4.80) 10^3/uL [place] # (Auto) 0.60 (0.00-0.80) 10^3/uL Eos # (Auto) 0.23 (0.00-0.45) 10^3/uL Baso # (Auto) 0.01 10^3/uL PT 10.3 (9.7-12.3) SEC INR 0.94 (0.92-1.18) Sodium 140 (136-145) mEq/L Potassium 3.8 (3.5-5.0) mEq/L Chloride 103 (98-106) mEq/L Carbon Dioxide 25 (21-32) mmol/L BUN 17 (7-18) mg/dL Creatinine 0.9 (0.7-1.3) mg/dL Est Cr Clr Drug Dosing 131.93 mL/min Estimated GFR (MDRD) > 60 (>=60) mL/min Glucose 90 (75-99) mg/dL Calcium 9.2 (8.4-10.1) mg/dL Total Bilirubin 0.7 (0.0-1.0) mg/dL AST 19 (15-37) U/L ALT 34 (12-78) U/L Alkaline Phosphatase 76 (46-116) U/L Lactate Dehydrogenase 154 (100-190) U/L Creatine Kinase 166 (35-232) U/L Troponin I < 0.017 (0.00-0.06) ng/mL Total Protein 7.4 (6.4-8.2) g/dL Albumin 3.9 (3.4-5.0) g/dL Lipase 66 L (73-393) U/L SARS CoV-2 RNA Rapid ZACKERY (NEGATIVE) 12/04/20 Range/Units 12:19 WBC (5.0-10.0) 10^3/uL RBC (4.50-6.00) 10^6/uL Hgb (14.0-18.0) g/dL Hct (40.0-54.0) % MCV (82.0-94.0) fL MCH (27.0-32.0) pg MCHC (33.0-38.0) g/dL RDW Coeff of Cyndi (11.0-15.0) % Plt Count (150-400) 10^3/uL Neut % (Auto) (35-85) % Lymph % (Auto) (10-55) % [place] % (Auto) (0-16) % Eos % (Auto) (0-5) % Baso % (Auto) (0-3) % Neut # (Auto) (1.80-7.00) 10^3/uL Lymph # (Auto) (1.00-4.80) 10^3/uL [place] # (Auto) (0.00-0.80) 10^3/uL Eos # (Auto) (0.00-0.45) 10^3/uL Baso # (Auto) 10^3/uL PT (9.7-12.3) SEC INR (0.92-1.18) Sodium (136-145) mEq/L Potassium (3.5-5.0) mEq/L Chloride (98-106) mEq/L Carbon Dioxide (21-32) mmol/L BUN (7-18) mg/dL Creatinine (0.7-1.3) mg/dL Est Cr Clr Drug Dosing mL/min Estimated GFR (MDRD) (>=60) mL/min Glucose (75-99) mg/dL Calcium (8.4-10.1) mg/dL Total Bilirubin (0.0-1.0) mg/dL AST (15-37) U/L ALT (12-78) U/L Alkaline Phosphatase (46-116) U/L Lactate Dehydrogenase (100-190) U/L Creatine Kinase (35-232) U/L Troponin I (0.00-0.06) ng/mL Total Protein (6.4-8.2) g/dL Albumin (3.4-5.0) g/dL Lipase (73-393) U/L SARS CoV-2 RNA Rapid ZACKERY Negative (NEGATIVE) Meds: Medications Discontinued Medications Generic Name Dose Route Start Last Admin Trade Name Annalisa PRN Reason Stop Dose Admin Aspirin 324 mg 12/04/20 12:35 12/04/20 12:38 Aspirin 81 Mg Tab.Chew PO 12/04/20 12:36 324 mg ONETIME ONE Administration Ketorolac Tromethamine 30 mg 12/04/20 12:56 12/04/20 13:12 Ketorolac 30 Mg/Ml Sdv IVPUSH 12/04/20 12:57 30 mg ONETIME ONE Administration Lorazepam 1 mg 12/04/20 13:38 12/04/20 13:42 Lorazepam 2 Mg/Ml Syringe IVPUSH 12/04/20 13:39 1 mg ONETIME ONE Administration Morphine Sulfate 4 mg 12/04/20 14:51 12/04/20 15:12 Morphine 4 Mg/Ml Vial IVPUSH 12/04/20 14:52 4 mg ONETIME ONE Administration Ondansetron HCl 4 mg 12/04/20 14:51 12/04/20 15:12 Ondansetron 4 Mg/2 Ml Sdv IVPUSH 12/04/20 14:52 4 mg NOW STA Administration - Radiology Interpretation Free Text/Narrative:: CXR: No acute findings - Re-Assessments/Exams Free Text/Narrative Re-Assessment/Exam: 12/04/20 13:40 Patient reports the Toradol did help with his chest pain. He does report he feels anxious. Will give him Ativan to see if this helps his anxiety. I spoke to Dr. Fox about this patient due to patient having HR at 46 with dizziness and chest pain, shortness of breath. Will discharge home on Holtor monitor and have patient get a stress test on , then Dr. Fox will see patient in office on after his test. Patient reports he has had this done in the past for same complaint. Will continue ER admit to evaluate Ativan and CP. 12/04/20 14:19 This patient now reports his pain in chest is down to a 3/10, much improved. He has been talking and joking with staff. Patient reports that his anxiousness feels better and so does his dizziness. Patient HR is currently 60 sinus. I will discharge the patient home. Patient is educated if his chest pain increases, his shortness of breath returns, he starts passing out, dizziness/lightheadedness returns, or ANY concerns that he is to return to the ER emergently. He voices back this understanding. 12/04/20 14:35 Just before pulling the monitor for discharge, the patient HR fell to 42 and became dizzy. I then called captain assistant at [facility] and spoke to Dr. Dunbar about this patient. He reports need to transfer. 12/04/20 15:04 Discussed with patient about captain assistant report to transfer due to his HR dropping with chest pain. Patient reports he would rather be transferred to [place]. I have called there, they will call me back. 12/04/20 15:16 Still no call back from [facility]. I called them back, not available yet. I gave one call my cell for them to call so I can give report and get accepting. I will verbally give accepting physician info to Vanda JUAREZ once I have it. I spoke to Vanda about this. Departure - Departure Time of Disposition: 14:24 Disposition: DC/Tfer to Acute Hospital 02 Reason for Transfer *Q: Other Condition: Fair Clinical Impression: Bradycardia, Acute coronary syndrome Chest pain Qualifiers: Chest pain type: unspecified Qualified Code(s): R07.9 - Chest pain, unspecified Referrals: Karly Marie PA [Primary Care Provider] - Forms: ED Department Discharge Additional Instructions: Followup with Dr. Fox this after stress test Stress Test on as scheduled Holter Monitor for 24 hours, return tomorrow Return to the ER for worsening of condition or any emergent concerns such as passing out, increase in chest pain, increase in shortness of breath, increase in dizziness, nausea, vomiting, or any concerns at all Sepsis Event Note (ED) - Evaluation Sepsis Screening Result: No Definite Risk - Focused Exam Vital Signs: Vital Signs Temp Pulse Resp BP Pulse Ox 12/04/20 13:45 57 L 20 131/84 96 12/04/20 13:30 49 L 16 125/80 96 12/04/20 13:16 44 L 16 117/73 97 12/04/20 13:15 44 L 125/80 96 12/04/20 12:45 50 L 20 119/87 94 L 12/04/20 12:30 51 L 131/86 94 L 12/04/20 12:21 97.0 F 54 L 18 129/80 96 12/04/20 12:15 51 L 122/76 95 - My Orders Last 24 Hours: My Active Orders 12/04/20 12:16 EKG Documentation Completion [RC] STAT 12/04/20 12:49 Chest 2V [CR] Stat 12/04/20 12:56 Orthostatic Vital Signs [RC] ASDIRECTED 12/04/20 14:22 Cardiolite Stress Test [Myocardial Perf Spect Multi] [NM] Stat - Assessment/Plan Last 24 Hours: My Active Orders 12/04/20 12:16 EKG Documentation Completion [RC] STAT 12/04/20 12:49 Chest 2V [CR] Stat 12/04/20 12:56 Orthostatic Vital Signs [RC] ASDIRECTED 12/04/20 14:22 Cardiolite Stress Test [Myocardial Perf Spect Multi] [NM] Stat Plan: PLEASE SEE RN NOTE FOR PFSH The risk vs benefits explained to the patient for transfer. He has accepted the transfer. The risk of transfer are mvc, , cardiac arrest, worsening of bradycardia. The risk of staying in [place] is no captain assistant, . The benefits of staying in [place] is close to home. The benefits of transfer are captain assistant, higher level of care, stress test and further workup ability.
[2020-12-04] MEDS ORDERED: LORazepam 2 MG/ML Syringe IVPUSH ONE (13:38)
[2020-12-04 13:47] VITALS: BP 131/84
[2020-12-04] MEDS ORDERED: Morphine 4 MG/ML VIAL IVPUSH ONE (14:51)
[2020-12-04] MEDS ORDERED: Ondansetron 4 MG/2 ML SDV IVPUSH STA (14:51)
[2020-12-04 16:38] VITALS: PULSE 64
== END 2020-12-04 16:16 | disposition home or self-care (01) ==
LOC: CC.ED 12:10
DX: I24.9 Acute ischemic heart disease, unspecified (principal); R00.1 Bradycardia, unspecified; E66.9 Obesity, unspecified; Z68.35 Body mass index [BMI] 35.0-35.9, adult; Z88.0 Allergy status to penicillin; Z72.0 Tobacco use; Z20.822 Contact with and (suspected) exposure to COVID-19
CPT/HCPCS: 36415; 71046; 80053; 82550; 83615; 83690; 84484; 85025; 85610; 93005; 93225; 93226; 96374; 96375; 99285-25; A9270-GY; J1885; J2060; J2270; J2405; U0002

== ENCOUNTER 2020-12-05 19:31 | Observation (INO) | payer BC ==
[2020-12-05] MEDS ORDERED: Aspirin 81 MG Tab.Chew PO ONE (19:42)
[2020-12-05 20:16] LABS: CHLORIDE,CL 104 mEq/L (98-106); SODIUM,NA 140 mEq/L (136-145)
--- NOTE | 2020-12-05 20:30 | EDM.PDOC ---
ED HPI GENERAL MEDICAL PROBLEM - General Chief Complaint: Chest Pain Stated Complaint: chest pain Time Seen by Provider: 12/05/20 20:03 Source of Information: Reports: Patient History Limitations: Reports: No Limitations - History of Present Illness INITIAL COMMENTS - FREE TEXT/NARRATIVE: Rey is a 35 yo male who presents to the ED via private vehicle with ongoing complaints of chest pain and dizziness. He was seen in the ED yesterday and underwent cardiac work up. Laboratory work was unremarkable. Patient did have occasional episode of bradycardia and was placed on Holter monitor which he did come in to have removed today. He states he has continued to have chest pain, rating it a 3 out of 3. Admits the dizziness today is different than yesterday and is more of a room spinning sensation. Admits the chest pain is more so constant, whether he is sitting, standing, lying or exerting himself. He admits he is scheduled for Cardiolite Stress Test on . Chest Pain Score (Numeric/FACES): 3 - Related Data Allergies Allergy/AdvReac Type Severity Reaction Status Date / Time Penicillins Allergy Anaphylactic Verified 12/05/20 19:50 Shock Home Meds: Home Meds ALPRAZolam [Alprazolam] 0.25 mg PO DAILY PRN 12/04/20 [History] Escitalopram Oxalate 5 mg PO DAILY 12/04/20 [History] Past Medical History - Past Health History Medical/Surgical History: Denies Medical/Surgical History Gastrointestinal History: Reports: GERD Musculoskeletal History: Reports: Other (See Below) Other Musculoskeletal History: BACK INJURY 2002, right wrist swelling Neurological History: Reports: Concussion Psychiatric History: Reports: Anxiety, Depression Endocrine/Metabolic History: Reports: Obesity/BMI 30+ - Past Surgical History HEENT Surgical History: Reports: Myringotomy w Tube(s), Tonsillectomy GI Surgical History: Reports: Appendectomy Endocrine Surgical History: Reports: None Neurological Surgical History: Reports: None Musculoskeletal Surgical History: Reports: None Social & Family History - Family History Family Medical History: No Pertinent Family History Cardiac: Reports: CAD, Hypertension Endocrine/Metabolic: Reports: Diabetes, type II - Caffeine Use Caffeine Use: Reports: Soda - Living Situation & Occupation Living situation: Reports: , with Significant Other Occupation: Employed ED ROS GENERAL - Review of Systems Review Of Systems: See Below Constitutional: Reports: Weakness HEENT: Reports: Vertigo Respiratory: Reports: No Symptoms, Shortness of Breath. Denies: Wheezing, Cough Cardiovascular: Reports: Chest Pain, Lightheadedness. Denies: Palpitations, Syncope GI/Abdominal: Reports: No Symptoms : Reports: No Symptoms Musculoskeletal: Reports: No Symptoms Skin: Reports: No Symptoms Neurological: Reports: Dizziness Psychiatric: Reports: No Symptoms Hematologic/Lymphatic: Reports: No Symptoms ED EXAM, GENERAL - Physical Exam Exam: See Below Exam Limited By: No Limitations General Appearance: Alert, No Apparent Distress Eye Exam: Bilateral Eye: EOMI Ears: Normal External Exam, Hearing Grossly Normal Nose: Normal Inspection, No Blood Throat/Mouth: Normal Inspection, Normal Voice, No Airway Compromise Head: Atraumatic, Normocephalic Neck: Normal Inspection, Supple Respiratory/Chest: No Respiratory Distress, Lungs Clear, Normal Breath Sounds, No Accessory Muscle Use Cardiovascular: Regular Rate, Rhythm, No Murmur GI/Abdominal: Normal Bowel Sounds, No Distention, Tender (mild epigastric tenderness) Neurological: Alert, Oriented, Normal Cognition, No Motor/Sensory Deficits Psychiatric: Normal Affect, Normal Mood Skin Exam: Warm, Dry, Intact, Normal Color, No Rash Course - Vital Signs Last Recorded V/S: Last Vital Signs Temp 98.0 F 12/05/20 19:32 Pulse 51 L 12/05/20 20:01 Resp 20 12/05/20 20:01 BP 123/84 12/05/20 20:01 Pulse Ox 98 12/05/20 19:46 - Orders/Labs/Meds Orders: Active Orders 24 hr Category Date Time Status EKG Documentation Completion [RC] STAT Care 12/05/20 19:39 Active Telemetry Monitoring [Cardiac Monitoring] [RC] . Care 12/05/20 19:39 Active DIRECTED Chest 2V [CR] Stat Exams 12/05/20 19:39 Taken Labs: Laboratory Tests 12/05/20 12/05/20 12/05/20 Range/Units 19:40 19:40 19:42 WBC 6.5 (5.0-10.0) 10^3/uL RBC 4.78 (4.50-6.00) 10^6/uL Hgb 14.5 (14.0-18.0) g/dL Hct 41.0 (40.0-54.0) % MCV 85.8 (82.0-94.0) fL MCH 30.3 (27.0-32.0) pg MCHC 35.4 (33.0-38.0) g/dL RDW Coeff of Cyndi 12.8 (11.0-15.0) % Plt Count 234 (150-400) 10^3/uL Neut % (Auto) 57.7 (35-85) % Lymph % (Auto) 32.3 (10-55) % [place] % (Auto) 7.3 (0-16) % Eos % (Auto) 2.5 (0-5) % Baso % (Auto) 0.2 (0-3) % Neut # (Auto) 3.74 (1.80-7.00) 10^3/uL Lymph # (Auto) 2.09 (1.00-4.80) 10^3/uL [place] # (Auto) 0.47 (0.00-0.80) 10^3/uL Eos # (Auto) 0.16 (0.00-0.45) 10^3/uL Baso # (Auto) 0.01 10^3/uL PT 10.4 (9.7-12.3) SEC INR 0.95 (0.92-1.18) Sodium 140 (136-145) mEq/L Potassium 3.8 (3.5-5.0) mEq/L Chloride 104 (98-106) mEq/L Carbon Dioxide 23 (21-32) mmol/L BUN 16 (7-18) mg/dL Creatinine 1.0 (0.7-1.3) mg/dL Est Cr Clr Drug Dosing 118.73 mL/min Estimated GFR (MDRD) > 60 (>=60) mL/min Glucose 84 (75-99) mg/dL Calcium 9.4 (8.4-10.1) mg/dL Magnesium 1.9 (1.8-2.4) mg/dL Total Bilirubin 0.3 (0.0-1.0) mg/dL AST 19 (15-37) U/L ALT 31 (12-78) U/L Alkaline Phosphatase 78 (46-116) U/L Lactate Dehydrogenase 152 (100-190) U/L Creatine Kinase 161 (35-232) U/L Troponin I < 0.017 (0.00-0.06) ng/mL Total Protein 7.3 (6.4-8.2) g/dL Albumin 3.9 (3.4-5.0) g/dL Lipase 65 L (73-393) U/L Meds: Medications Discontinued Medications Generic Name Dose Route Start Last Admin Trade Name Annalisa PRN Reason Stop Dose Admin Aspirin 324 mg 12/05/20 19:42 12/05/20 19:32 Aspirin 81 Mg Tab.Chew PO 12/05/20 19:43 324 mg ONETIME ONE Administration Departure - Departure Time of Disposition: 20:33 Disposition: Refer to Observation Clinical Impression: Atypical chest pain, Bradycardia Referrals: Karly Marie PA [Primary Care Provider] - Forms: ED Department Discharge Sepsis Event Note (ED) - Evaluation Sepsis Screening Result: No Definite Risk - Focused Exam Vital Signs: Vital Signs Temp Pulse Resp BP Pulse Ox 12/05/20 20:01 51 L 20 123/84 12/05/20 19:46 56 L 13 117/83 98 12/05/20 19:32 98.0 F 60 10 L 149/93 H 98 - Problem List & Annotations (1) Bradycardia SNOMED Code(s): 07242845 Code(s): R00.1 - BRADYCARDIA, UNSPECIFIED Status: Acute Current Visit: Yes (2) Atypical chest pain SNOMED Code(s): 666128274 Code(s): R07.89 - OTHER CHEST PAIN Status: Acute Current Visit: Yes (3) Dizziness SNOMED Code(s): 019881431, 386375243 Code(s): R42 - DIZZINESS AND GIDDINESS Status: Acute Current Visit: Yes - Problem List Review Problem List Initiated/Reviewed/Updated: Yes - My Orders Last 24 Hours: My Active Orders 12/05/20 19:39 EKG Documentation Completion [RC] STAT Telemetry Monitoring [Cardiac Monitoring] [RC] . DIRECTED Chest 2V [CR] Stat - Assessment/Plan Admission H&P: Please use this note as an admission H&P Last 24 Hours: My Active Orders 12/05/20 19:39 EKG Documentation Completion [RC] STAT Telemetry Monitoring [Cardiac Monitoring] [RC] . DIRECTED Chest 2V [CR] Stat Plan: Patient to be admitted to Dr. Fox's services under observation. Dr. Fox consulted in regards to admit. Will place on telemetry and closely monitor. Laboratory work is unremarkable tonight. Cardiac work up is negative. EKG showed sinus bradycardia at 54 bpm.
[2020-12-05] MEDS ORDERED: Sodium Chloride 0.9% 10 ML Syringe FLUSH PRN (21:18)
[2020-12-05] MEDS ORDERED: Acetaminophen 325 MG Tab PO PRN (21:18)
[2020-12-06 08:01] LABS: CHLORIDE,CL 107 mEq/L (98-106); SODIUM,NA 143 mEq/L (136-145)
[2020-12-06] MEDS ORDERED: ESCITALOPRAM OXALATE 5 MG PO SCH (11:00)
[2020-12-06 11:56] VITALS: BP 125/81; PULSE 42
--- NOTE | 2020-12-07 01:26 | PCM.DCSUM1 ---
Discharge Summary - Hospital Course HPI Initial Comments: Rey is a 35 yo male who has been having dizziness, chest pain and shortness of breath for the last few weeks. Was seen in the ED on Friday and complete cardiac work up completed. Patient was found to be in sinus bradycardia. Justice Esposito did discuss patient with cardiology in [place] and [place]. Initially, patient was gong to be transferred and ended up overall being discharged with a Holter monitor. Rey presented back to the ED Friday evening with ongoing symptoms. Repeat cardiac workup was completed and EKG did show sinus bradycardia. Laboratory work was unremarkable. Chest x-ray was negative. Patient was admitted to observation status with continuous cardiac monitoring. Diagnosis: Stroke: No - Discharge Data Discharge Date: 12/06/20 Discharge Disposition: DC/Tfer to Acute Hospital 02 Condition: Fair - Referral to Home Health Primary Care Physician: LARRY Mckee - Discharge Diagnosis/Problem(s) (1) Bradycardia SNOMED Code(s): 00262726 ICD Code: R00.1 - BRADYCARDIA, UNSPECIFIED Status: Acute (2) Atypical chest pain SNOMED Code(s): 101617466 ICD Code: R07.89 - OTHER CHEST PAIN Status: Acute (3) Dizziness SNOMED Code(s): 032713129, 670967643 ICD Code: R42 - DIZZINESS AND GIDDINESS Status: Acute - Discharge Plan *PRESCRIPTION DRUG MONITORING PROGRAM REVIEWED*: No *COPY OF PRESCRIPTION DRUG MONITORING REPORT IN PATIENT STEVE: No Home Medications: Home Meds ALPRAZolam [Alprazolam] 0.25 mg PO DAILY PRN 12/04/20 [History] Escitalopram Oxalate 5 mg PO DAILY 12/04/20 [History] Oxygen Therapy Mode: Room Air Forms: ED Department Discharge - Discharge Summary/Plan Comment DC Time >30 min.: Yes Discharge Summary/Plan Comment: Rey continued to be symptomatic this morning with pain of 2 out of 10. Continued to have dizziness upon ambulation. Repeat EKG this morning did show sinus bradycardia at 45 bpm. Repeat laboratory work this morning was unremarkable. Orthostatic blood pressures were completed and unremarkable, see nursing notes. Rey's significant other present this morning and verbalized concerns of patient's ongoing symptoms. Consulted with coremaker, Dr. Moraes, at [facility] in [place] in which he felt further work up was warranted. [facility] did connect us with the hospitalist, Dr. Humphries, who kindly accepted transfer. Discussed risks and benefits of transfer with Rey and his significant other. Risks of transfer included worsening of symptoms, MVA, . Benefits of transfer included further cardiac workup, appropriate specialty care. Risks of non transfer included worsening of condition, no specialty care, . Benefits of non transfer included staying close to home, familiar environment. Rey and his girlfriend felt the benefits outweighed the risk. Initially, Rey wanted to transfer via private vehicle. Due to patients condition, his girlfriend declined private transfer. Patient to be transferred via ALS secondary to cardiac monitoring and heart arrhythmia. - General Info Date of Service: 12/06/20 Admission Dx/Problem (Free Text: Symptomatic Bradycardia Subjective Update: See HPI - Review of Systems General: Reports: Weakness, Fatigue HEENT: Reports: No Symptoms Pulmonary: Reports: Shortness of Breath Cardiovascular: Reports: Chest Pain, Dyspnea on Exertion, Lightheadedness Gastrointestinal: Reports: No Symptoms Genitourinary: Reports: No Symptoms Musculoskeletal: Reports: No Symptoms Skin: Reports: No Symptoms Neurological: Reports: No Symptoms - Patient Data Vitals - Most Recent: Last Vital Signs Temp 97.8 F 12/06/20 11:55 Pulse 42 L 12/06/20 11:55 Resp 12 12/06/20 11:55 BP 125/81 12/06/20 11:55 Pulse Ox 97 12/06/20 11:55 Weight - Most Recent: 275 lb 2.19 oz Lab Results - Last 24 hrs: Laboratory Results - last 24 hr 12/06/20 12/06/20 Range/Units 07:38 07:38 WBC 5.4 (5.0-10.0) 10^3/uL RBC 4.59 (4.50-6.00) 10^6/uL Hgb 13.9 L (14.0-18.0) g/dL Hct 40.4 (40.0-54.0) % MCV 88.0 (82.0-94.0) fL MCH 30.3 (27.0-32.0) pg MCHC 34.4 (33.0-38.0) g/dL RDW Coeff of Cyndi 13.0 (11.0-15.0) % Plt Count 226 (150-400) 10^3/uL Neut % (Auto) 45.3 (35-85) % Lymph % (Auto) 40.8 (10-55) % Chilton % (Auto) 10.2 (0-16) % Eos % (Auto) 3.5 (0-5) % Baso % (Auto) 0.2 (0-3) % Neut # (Auto) 2.43 (1.80-7.00) 10^3/uL Lymph # (Auto) 2.19 (1.00-4.80) 10^3/uL Chilton # (Auto) 0.55 (0.00-0.80) 10^3/uL Eos # (Auto) 0.19 (0.00-0.45) 10^3/uL Baso # (Auto) 0.01 10^3/uL Sodium 143 (136-145) mEq/L Potassium 4.0 (3.5-5.0) mEq/L Chloride 107 H (98-106) mEq/L Carbon Dioxide 27 (21-32) mmol/L BUN 18 (7-18) mg/dL Creatinine 1.0 (0.7-1.3) mg/dL Est Cr Clr Drug Dosing 118.73 mL/min Estimated GFR (MDRD) > 60 (>=60) mL/min Glucose 92 (75-99) mg/dL Calcium 8.9 (8.4-10.1) mg/dL Troponin I < 0.017 (0.00-0.06) ng/mL Med Orders - Current: Current Medications Discontinued Medications Acetaminophen (Acetaminophen 325 Mg Tab) 650 mg PO Q4H PRN PRN Reason: Pain (Mild 1-3)/fever Aspirin (Aspirin 81 Mg Tab.Chew) 324 mg PO ONETIME ONE Stop: 12/05/20 19:43 Last Admin: 12/05/20 19:32 Dose: 324 mg Documented by: Escitalopram Oxalate [Lexapro] 5 Mg Tablet Pt Own 0 mg PO DAILY BLANCHE Last Admin: 12/06/20 10:59 Dose: 5 mg Documented by: Sodium Chloride (Sodium Chloride 0.9% 10 Ml Syringe) 10 ml FLUSH ASDIRECTED PRN PRN Reason: Keep Vein Open - Exam General: Reports: Alert, Oriented, Cooperative, No Acute Distress Neck: Reports: Supple Lungs: Reports: Clear to Auscultation, Normal Respiratory Effort Cardiovascular: Reports: No Murmurs, Bradycardia GI/Abdominal Exam: Normal Bowel Sounds, Soft, Non-Tender Extremities: Normal Inspection, No Pedal Edema Skin: Reports: Warm, Dry, Intact Neurological: Reports: No New Focal Deficit Psy/Mental Status: Reports: Alert, Normal Affect, Normal Mood
== END 2020-12-06 14:00 ==
LOC: CC.ED 19:31 → CC.MS 20:51 → UNDOADMOB 21:12
PROVIDERS: ADMIT Physician Assistant Medical; ATTEND Family Medicine
DX: R07.89 Other chest pain (principal); R00.1 Bradycardia, unspecified; R42 Dizziness and giddiness; E66.9 Obesity, unspecified; Z68.35 Body mass index [BMI] 35.0-35.9, adult; Z88.0 Allergy status to penicillin; Z79.899 Other long term (current) drug therapy; Z98.890 Other specified postprocedural states
CPT/HCPCS: 36415; 71046; 80048; 80053; 82550; 83615; 83690; 83735; 84484; 85025; 85610; 93005; 99285-25; A9270-GY; G0378

== ENCOUNTER 2020-12-17 18:35 | Emergency (ER) | payer BC ==
--- NOTE | 2020-12-17 18:58 | EDM.PDOC ---
ED HPI GENERAL MEDICAL PROBLEM - General Chief Complaint: Chest Pain Stated Complaint: "chest pain" Time Seen by Provider: 12/17/20 18:40 Source of Information: Reports: Patient History Limitations: Reports: No Limitations - History of Present Illness INITIAL COMMENTS - FREE TEXT/NARRATIVE: This patient is a 35 year old male that arrives via EMS. Patient reports that started about 10 this morning, then worsened while at work at noon having chest pain to the central chest and left arm with tingling. Patient reports the pain feels how it has felt the last 2 weeks. Patient has been seen twice in the ER for previous complaint, sent home on holter, then seen again, transferred to [facility] last Friday. He was discharged from [facility] Friday, sent home on Holtor monitor again. Patient has a Holter monitor on and will keep on until the 3th per patient. Patient reports that he keeps getting these chest pains on and off. Patient reports his fiance keeps encouraging him to come to the ER per patient. Patient does reports history of anxiety and panic attacks. he reports this does not feel like those. Patient reports not taking his medications recently for those. Patient denies hudson, dizziness, n, v, d, f, neck pain, back pain, abd pain, injuries. Patient alert and oriented. Onset: Today Onset Date: 12/17/20 Duration: Hour(s): (8), Waxing/Waning Location: Reports: Chest Quality: Reports: Same as Previous Episode, Sharp Severity: Mild (currently a 2/10) Improves with: Reports: None Worsens with: Reports: None Associated Symptoms: Reports: Chest Pain, Shortness of Breath. Denies: Confusion, Cough, cough w sputum, Diaphoresis, Fever/Chills, Headaches, Loss of Appetite, Malaise, Nausea/Vomiting, Rash, Seizure, Syncope, Weakness - Related Data Allergies Allergy/AdvReac Type Severity Reaction Status Date / Time Penicillins Allergy Anaphylactic Verified 12/05/20 19:50 Shock Home Meds: Home Meds ALPRAZolam [Alprazolam] 0.25 mg PO DAILY PRN 12/04/20 [History] Escitalopram Oxalate 5 mg PO DAILY 12/04/20 [History] Past Medical History - Past Health History Medical/Surgical History: Denies Medical/Surgical History Gastrointestinal History: Reports: GERD Musculoskeletal History: Reports: Other (See Below) Other Musculoskeletal History: BACK INJURY 2003, right wrist swelling Neurological History: Reports: Concussion Psychiatric History: Reports: Anxiety, Depression Endocrine/Metabolic History: Reports: Obesity/BMI 30+ - Past Surgical History HEENT Surgical History: Reports: Myringotomy w Tube(s), Tonsillectomy GI Surgical History: Reports: Appendectomy Endocrine Surgical History: Reports: None Neurological Surgical History: Reports: None Musculoskeletal Surgical History: Reports: None Social & Family History - Family History Family Medical History: No Pertinent Family History Cardiac: Reports: CAD, Hypertension Endocrine/Metabolic: Reports: Diabetes, type II - Caffeine Use Caffeine Use: Reports: Soda - Living Situation & Occupation Living situation: Reports: , with Significant Other Occupation: Employed ED ROS GENERAL - Review of Systems Review Of Systems: See Below Constitutional: Reports: No Symptoms HEENT: Reports: No Symptoms Respiratory: Reports: Shortness of Breath. Denies: Wheezing, Pleuritic Chest Pain, Cough, Sputum, Hemoptysis Cardiovascular: Reports: Chest Pain. Denies: Blood Pressure Problem, Dyspnea on Exertion, Edema, Lightheadedness, Orthopnea, Palpitations, Syncope Endocrine: Reports: No Symptoms GI/Abdominal: Reports: No Symptoms : Reports: No Symptoms Musculoskeletal: Reports: No Symptoms Skin: Reports: No Symptoms Neurological: Reports: No Symptoms Psychiatric: Reports: No Symptoms Hematologic/Lymphatic: Reports: No Symptoms Immunologic: Reports: No Symptoms ED EXAM, GENERAL - Physical Exam Exam: See Below Exam Limited By: No Limitations General Appearance: Alert, WD/WN, No Apparent Distress, Anxious Eye Exam: Bilateral Eye: Normal Inspection, PERRL Ears: Normal External Exam, Normal Canal, Hearing Grossly Normal, Normal TMs Ear Exam: Bilateral Ear: Auricle Normal, Canal Normal, TM normal Nose: Normal Inspection, Normal Mucosa, No Blood Throat/Mouth: Normal Inspection, Normal Lips, Normal Teeth, Normal Gums, Normal Oropharynx, Normal Voice, No Airway Compromise Head: Atraumatic, Normocephalic Neck: Normal Inspection, Non-Tender, Full Range of Motion Respiratory/Chest: No Respiratory Distress, Lungs Clear, Normal Breath Sounds, No Accessory Muscle Use, Chest Non-Tender Cardiovascular: Normal Peripheral Pulses, Regular Rate, Rhythm, No Edema, No Gallop, No JVD, No Murmur, No Rub Peripheral Pulses: 2+: Radial (L), Radial (R), Posterior Tibial (L), Posterior Tibial (R), Dorsalis Pedis (L), Dorsalis Pedis (R) GI/Abdominal: Normal Bowel Sounds, Soft, Non-Tender, No Organomegaly, No Distention, No Abnormal Bruit, No Mass, Pelvis Stable (Male) Exam: Deferred Rectal (Males) Exam: Deferred Back Exam: Normal Inspection, Full Range of Motion Extremities: Normal Inspection, Normal Range of Motion, Non-Tender, No Pedal Edema, Normal Capillary Refill Neurological: Alert, Oriented, Normal Cognition, Normal Gait, No Motor/Sensory Deficits Psychiatric: Anxious Skin Exam: Warm, Dry, Intact, Normal Color, No Rash Lymphatic: No Adenopathy #1 Interpretation EKG Date: 12/17/20 Time: 18:32 Rhythm: NSR Rate (Beats/Min): 64 ST-T: Normal QT: Normal Comparison: Change From Previous EKG (previous was sinus cecelia. This is NSR.) Course - Vital Signs Last Recorded V/S: Last Vital Signs Temp 98.1 F 12/17/20 18:41 Pulse 62 12/17/20 18:41 Resp 20 12/17/20 18:41 BP 130/87 12/17/20 18:41 Pulse Ox 97 12/17/20 18:41 - Orders/Labs/Meds Orders: Active Orders 24 hr Category Date Time Status Chest 2V [CR] Stat Exams 12/17/20 18:39 Taken DRUG SCREEN URINE BIORAD [URCHEM] Stat Lab 12/17/20 19:10 Received Labs: Laboratory Tests 12/17/20 12/17/20 12/17/20 Range/Units 18:40 18:40 18:40 WBC 7.8 (5.0-10.0) 10^3/uL RBC 5.20 (4.50-6.00) 10^6/uL Hgb 15.6 (14.0-18.0) g/dL Hct 44.0 (40.0-54.0) % MCV 84.6 (82.0-94.0) fL MCH 30.0 (27.0-32.0) pg MCHC 35.5 (33.0-38.0) g/dL RDW Coeff of Cyndi 12.9 (11.0-15.0) % Plt Count 271 (150-400) 10^3/uL Neut % (Auto) 56.3 (35-85) % Lymph % (Auto) 33.9 (10-55) % Wolfe % (Auto) 6.8 (0-16) % Eos % (Auto) 2.9 (0-5) % Baso % (Auto) 0.1 (0-3) % Neut # (Auto) 4.40 (1.80-7.00) 10^3/uL Lymph # (Auto) 2.65 (1.00-4.80) 10^3/uL Wolfe # (Auto) 0.53 (0.00-0.80) 10^3/uL Eos # (Auto) 0.23 (0.00-0.45) 10^3/uL Baso # (Auto) 0.01 10^3/uL PT 10.3 (9.7-12.3) SEC INR 0.94 (0.92-1.18) D-Dimer, Quantitative (0.00-0.50) Sodium 143 (136-145) mEq/L Potassium 3.5 (3.5-5.0) mEq/L Chloride 103 (98-106) mEq/L Carbon Dioxide 23 (21-32) mmol/L BUN 25 H (7-18) mg/dL Creatinine 1.1 (0.7-1.3) mg/dL Est Cr Clr Drug Dosing TNP Estimated GFR (MDRD) > 60 (>=60) mL/min Glucose 89 (75-99) mg/dL Calcium 9.7 (8.4-10.1) mg/dL Total Bilirubin 0.4 (0.0-1.0) mg/dL AST 24 (15-37) U/L ALT 33 (12-78) U/L Alkaline Phosphatase 86 (46-116) U/L Lactate Dehydrogenase 207 H (100-190) U/L Creatine Kinase 221 (35-232) U/L Troponin I < 0.017 (0.00-0.06) ng/mL Total Protein 7.8 (6.4-8.2) g/dL Albumin 4.0 (3.4-5.0) g/dL TSH, Ultra Sensitive 1.40 (0.36-5.60) uIU/mL Urine Opiates Screen (NEGATIVE) Ur Oxycodone Screen (NEGATIVE) Urine Methadone Screen (NEGATIVE) Ur Barbiturates Screen (NEGATIVE) U Tricyclic Antidepress (NEGATIVE) Ur Phencyclidine Scrn (NEGATIVE) Ur Amphetamine Screen (NEGATIVE) U Methamphetamines Scrn (NEGATIVE) Urine MDMA Screen (NEGATIVE) U Benzodiazepines Scrn (NEGATIVE) Urine Cocaine Screen (NEGATIVE) U Marijuana (THC) Screen (NEGATIVE) 12/17/20 12/17/20 Range/Units 18:40 19:10 WBC (5.0-10.0) 10^3/uL RBC (4.50-6.00) 10^6/uL Hgb (14.0-18.0) g/dL Hct (40.0-54.0) % MCV (82.0-94.0) fL MCH (27.0-32.0) pg MCHC (33.0-38.0) g/dL RDW Coeff of Cyndi (11.0-15.0) % Plt Count (150-400) 10^3/uL Neut % (Auto) (35-85) % Lymph % (Auto) (10-55) % Wolfe % (Auto) (0-16) % Eos % (Auto) (0-5) % Baso % (Auto) (0-3) % Neut # (Auto) (1.80-7.00) 10^3/uL Lymph # (Auto) (1.00-4.80) 10^3/uL Wolfe # (Auto) (0.00-0.80) 10^3/uL Eos # (Auto) (0.00-0.45) 10^3/uL Baso # (Auto) 10^3/uL PT (9.7-12.3) SEC INR (0.92-1.18) D-Dimer, Quantitative 0.34 (0.00-0.50) Sodium (136-145) mEq/L Potassium (3.5-5.0) mEq/L Chloride (98-106) mEq/L Carbon Dioxide (21-32) mmol/L BUN (7-18) mg/dL Creatinine (0.7-1.3) mg/dL Est Cr Clr Drug Dosing Estimated GFR (MDRD) (>=60) mL/min Glucose (75-99) mg/dL Calcium (8.4-10.1) mg/dL Total Bilirubin (0.0-1.0) mg/dL AST (15-37) U/L ALT (12-78) U/L Alkaline Phosphatase (46-116) U/L Lactate Dehydrogenase (100-190) U/L Creatine Kinase (35-232) U/L Troponin I (0.00-0.06) ng/mL Total Protein (6.4-8.2) g/dL Albumin (3.4-5.0) g/dL TSH, Ultra Sensitive (0.36-5.60) uIU/mL Urine Opiates Screen Negative (NEGATIVE) Ur Oxycodone Screen Negative (NEGATIVE) Urine Methadone Screen Negative (NEGATIVE) Ur Barbiturates Screen Negative (NEGATIVE) U Tricyclic Antidepress Negative (NEGATIVE) Ur Phencyclidine Scrn Negative (NEGATIVE) Ur Amphetamine Screen Negative (NEGATIVE) U Methamphetamines Scrn Negative (NEGATIVE) Urine MDMA Screen Negative (NEGATIVE) U Benzodiazepines Scrn Negative (NEGATIVE) Urine Cocaine Screen Negative (NEGATIVE) U Marijuana (THC) Screen Negative (NEGATIVE) - Radiology Interpretation Free Text/Narrative:: CXR: No acute findings - Re-Assessments/Exams Free Text/Narrative Re-Assessment/Exam: 12/17/20 19:18 I called and spoke to Dr. Pisano Ceramic Tiler at [facility] about this patient. He reports to have the patient get a CTA Chest outpatient and f/u with functional director in office and for Holter. If those are normal, start looking for noncardiac reasons for chest pain. Labs are unremarkable, will discharge home. Departure - Departure Time of Disposition: 19:38 Disposition: Home, Self-Care 01 Reason for Transfer *Q: Other Condition: Fair Clinical Impression: Atypical chest pain Instructions: Nonspecific Chest Pain, Adult Forms: ED Department Discharge Additional Instructions: Followup with a primary care provider Have CTA of the Chest tomorrow morning at 8am Return to the ER for emergencies Followup with your functional director as recommended Sepsis Event Note (ED) - Focused Exam Vital Signs: Vital Signs Temp Pulse Resp BP Pulse Ox 12/17/20 18:41 98.1 F 62 20 130/87 97 - My Orders Last 24 Hours: My Active Orders 12/17/20 18:39 Chest 2V [CR] Stat 12/17/20 19:10 DRUG SCREEN URINE BIORAD [URCHEM] Stat - Assessment/Plan Last 24 Hours: My Active Orders 12/17/20 18:39 Chest 2V [CR] Stat 12/17/20 19:10 DRUG SCREEN URINE BIORAD [URCHEM] Stat Plan: PLEASE SEE RN NOTE FOR PFSH
[2020-12-17 19:04] LABS: CHLORIDE,CL 103 mEq/L (98-106); SODIUM,NA 143 mEq/L (136-145)
[2020-12-17 19:18] VITALS: BP 130/87; PULSE 62
== END 2020-12-17 19:52 | disposition home or self-care (01) ==
LOC: CC.ED 18:35
DX: R07.89 Other chest pain (principal); E66.9 Obesity, unspecified; Z88.0 Allergy status to penicillin; Z68.35 Body mass index [BMI] 35.0-35.9, adult
CPT/HCPCS: 36415; 71046; 80053; 80305-QW; 82550; 83615; 84443; 84484; 85025; 85379; 85610; 93005; 99285-25

== ENCOUNTER 2021-05-21 09:57 | Emergency (ER) | payer OTHER ==
[2021-05-21 10:26] LABS: PTT,PARTIAL THROMBOPLSTIN TIME 22.5 SEC (23.2-32.3)
[2021-05-21 10:29] LABS: CHLORIDE,CL 105 mEq/L (98-106); SODIUM,NA 142 mEq/L (136-145)
[2021-05-21] MEDS: Aspirin 81 MG Tab.Chew PO ONE (10:31)
--- NOTE | 2021-05-21 10:31 | EDM.PDOC ---
ED HPI GENERAL MEDICAL PROBLEM - General Stated Complaint: CP Time Seen by Provider: 05/21/21 10:28 Source of Information: Reports: Patient History Limitations: Reports: No Limitations - History of Present Illness INITIAL COMMENTS - FREE TEXT/NARRATIVE: This patient is a 35 year old male patient that presents to the ER. Patient reports that since having sharp pain all across his chest. Patient reports that the pain increased in intensity today. Patient reports that he has seen a electromatic typist in [facility] for his chest pain, awaiting lab results he did. He reports they have not found any reasoning for his chest pain yet. Patient has been seen a few times in this ER for chest pain with negative labs and discharged home. The patient has known bradycardia. Patient reports some mild drainage. Patient denies headache, nec pain, neck stiffness, shortness of breath, abd pain, back pain, urinary/bowel changes, rash. Patient reports nothing makes the pain worse or better. He reports its constant. Denies taking anything for it to make better. Patient reports he is a smoker. Onset Date: 05/18/21 Location: Reports: Chest Severity: Moderate Improves with: Reports: None Worsens with: Reports: None Associated Symptoms: Reports: Chest Pain. Denies: Confusion, Cough, cough w sputum, Diaphoresis, Fever/Chills, Headaches, Loss of Appetite, Malaise, Nausea/Vomiting, Rash, Seizure, Shortness of Breath, Syncope, Weakness Chest Pain Score (Numeric/FACES): 5 - Related Data Allergies Allergy/AdvReac Type Severity Reaction Status Date / Time Penicillins Allergy Anaphylactic Verified 05/21/21 11:02 Shock Past Medical History - Past Health History Medical/Surgical History: Denies Medical/Surgical History Gastrointestinal History: Reports: GERD Musculoskeletal History: Reports: Other (See Below) Other Musculoskeletal History: BACK INJURY 2003, right wrist swelling Neurological History: Reports: Concussion Psychiatric History: Reports: Anxiety, Depression Endocrine/Metabolic History: Reports: Obesity/BMI 30+ - Past Surgical History HEENT Surgical History: Reports: Myringotomy w Tube(s), Tonsillectomy GI Surgical History: Reports: Appendectomy Endocrine Surgical History: Reports: None Neurological Surgical History: Reports: None Musculoskeletal Surgical History: Reports: None Social & Family History - Family History Family Medical History: No Pertinent Family History Cardiac: Reports: CAD, Hypertension Endocrine/Metabolic: Reports: Diabetes, type II - Caffeine Use Caffeine Use: Reports: Soda - Living Situation & Occupation Living situation: Reports: , with Significant Other Occupation: Employed ED ROS GENERAL - Review of Systems Review Of Systems: See Below Constitutional: Reports: No Symptoms HEENT: Reports: Rhinitis. Denies: Ear Pain, Throat Pain Respiratory: Reports: No Symptoms Cardiovascular: Reports: Chest Pain. Denies: Dyspnea on Exertion, Edema, Lightheadedness, Palpitations, Syncope Endocrine: Reports: No Symptoms GI/Abdominal: Reports: No Symptoms : Reports: No Symptoms Musculoskeletal: Reports: No Symptoms Skin: Reports: No Symptoms Neurological: Reports: No Symptoms Psychiatric: Reports: No Symptoms Hematologic/Lymphatic: Reports: No Symptoms Immunologic: Reports: No Symptoms ED EXAM, GENERAL - Physical Exam Exam: See Below Exam Limited By: No Limitations General Appearance: Alert, WD/WN, No Apparent Distress Eye Exam: Bilateral Eye: Normal Inspection, PERRL Ears: Normal External Exam, Normal Canal, Hearing Grossly Normal, Normal TMs Ear Exam: Bilateral Ear: Auricle Normal, Canal Normal, TM normal Nose: Normal Inspection, Normal Mucosa, No Blood Throat/Mouth: Normal Inspection, Normal Lips, Normal Teeth, Normal Gums, Normal Oropharynx, Normal Voice, No Airway Compromise Head: Atraumatic, Normocephalic Neck: Normal Inspection, Supple, Non-Tender, Full Range of Motion Respiratory/Chest: No Respiratory Distress, Lungs Clear, Normal Breath Sounds, No Accessory Muscle Use, Chest Non-Tender Cardiovascular: Normal Peripheral Pulses, No Edema, No Gallop, No JVD, No Murmur, No Rub, Bradycardia (56 on exam. Known hx of bradycardia. ) Peripheral Pulses: 2+: Radial (L), Radial (R), Posterior Tibial (L), Posterior Tibial (R) GI/Abdominal: Soft, Non-Tender Back Exam: Normal Inspection Extremities: Normal Inspection, Normal Range of Motion, Non-Tender, No Pedal Edema, Normal Capillary Refill Neurological: Alert, Oriented, Normal Cognition, Normal Gait, No Motor/Sensory Deficits Psychiatric: Normal Affect, Normal Mood Skin Exam: Warm, Dry, Intact, Normal Color, No Rash Lymphatic: No Adenopathy Course - Vital Signs Last Recorded V/S: Last Vital Signs Temp 96.8 F L 05/21/21 10:00 Pulse 57 L 05/21/21 10:00 Resp 20 05/21/21 10:00 BP 129/83 05/21/21 10:00 Pulse Ox 99 05/21/21 10:00 - Orders/Labs/Meds Orders: Active Orders 24 hr Category Date Time Status Chest 2V [CR] Routine Exams 05/21/21 Taken Labs: Laboratory Tests 05/21/21 05/21/21 05/21/21 Range/Units 10:09 10:09 10:09 WBC 5.9 (4.0-11.0) 10^3/uL RBC 4.74 (4.50-6.00) x10^6/uL Hgb 14.0 (14.0-18.0) g/dL Hct 41.0 L (42.0-52.0) % MCV 86.5 (83.0-97.0) fL MCH 29.5 (27.0-32.0) pg MCHC 34.1 (32.0-36.0) g/dL RDW Coeff of Cyndi 12.6 (11.0-15.0) % Plt Count 258 (150-400) 10^3/uL Immature Gran % (Auto) 0.2 (0.0-4.9) % Neut % (Auto) 51.5 (41-71) % Lymph % (Auto) 36.4 (24-44) % Hickman % (Auto) 8.2 (0-10) % Eos % (Auto) 3.2 (0-6) % Baso % (Auto) 0.5 (0-1) % Neut # (Auto) 3.01 (1.80-8.00) x10^3/uL Lymph # (Auto) 2.13 (0.60-5.00) 10^3/uL Hickman # (Auto) 0.48 (0.00-1.50) 10^3/uL Eos # (Auto) 0.19 (0.00-1.50) 10^3/uL Baso # (Auto) 0.03 (0.00-0.50) 10^3/uL Immature Gran # (Auto) 0.01 (0.00-0.49) 10^3/uL PT 10.3 (9.7-12.3) SEC INR 0.94 (0.92-1.18) APTT 22.5 L (23.2-32.3) SEC Sodium 142 (136-145) mEq/L Potassium 4.4 D (3.5-5.0) mEq/L Chloride 105 (98-106) mEq/L Carbon Dioxide 27 (21-32) mmol/L BUN 19 H (7-18) mg/dL Creatinine 1.0 (0.7-1.3) mg/dL Est Cr Clr Drug Dosing TNP Estimated GFR (MDRD) > 60 (>=60) mL/min Glucose 88 (75-99) mg/dL Calcium 9.4 (8.4-10.1) mg/dL Total Bilirubin 0.4 (0.0-1.0) mg/dL AST 20 (15-37) U/L ALT 29 (12-78) U/L Alkaline Phosphatase 70 (46-116) U/L Lactate Dehydrogenase 190 (100-190) U/L Creatine Kinase 246 H (35-232) U/L Troponin I High Sens 4.9 (<=76) pg/mL Total Protein 7.5 (6.4-8.2) g/dL Albumin 4.0 (3.4-5.0) g/dL Lipase 88 (73-393) U/L SARS CoV-2 RNA Rapid ZACKERY (NEGATIVE) 05/21/21 Range/Units 10:29 WBC (4.0-11.0) 10^3/uL RBC (4.50-6.00) x10^6/uL Hgb (14.0-18.0) g/dL Hct (42.0-52.0) % MCV (83.0-97.0) fL MCH (27.0-32.0) pg MCHC (32.0-36.0) g/dL RDW Coeff of Cyndi (11.0-15.0) % Plt Count (150-400) 10^3/uL Immature Gran % (Auto) (0.0-4.9) % Neut % (Auto) (41-71) % Lymph % (Auto) (24-44) % Hickman % (Auto) (0-10) % Eos % (Auto) (0-6) % Baso % (Auto) (0-1) % Neut # (Auto) (1.80-8.00) x10^3/uL Lymph # (Auto) (0.60-5.00) 10^3/uL Hickman # (Auto) (0.00-1.50) 10^3/uL Eos # (Auto) (0.00-1.50) 10^3/uL Baso # (Auto) (0.00-0.50) 10^3/uL Immature Gran # (Auto) (0.00-0.49) 10^3/uL PT (9.7-12.3) SEC INR (0.92-1.18) APTT (23.2-32.3) SEC Sodium (136-145) mEq/L Potassium (3.5-5.0) mEq/L Chloride (98-106) mEq/L Carbon Dioxide (21-32) mmol/L BUN (7-18) mg/dL Creatinine (0.7-1.3) mg/dL Est Cr Clr Drug Dosing Estimated GFR (MDRD) (>=60) mL/min Glucose (75-99) mg/dL Calcium (8.4-10.1) mg/dL Total Bilirubin (0.0-1.0) mg/dL AST (15-37) U/L ALT (12-78) U/L Alkaline Phosphatase (46-116) U/L Lactate Dehydrogenase (100-190) U/L Creatine Kinase (35-232) U/L Troponin I High Sens (<=76) pg/mL Total Protein (6.4-8.2) g/dL Albumin (3.4-5.0) g/dL Lipase (73-393) U/L SARS CoV-2 RNA Rapid ZACKERY Negative (NEGATIVE) Meds: Medications Discontinued Medications Generic Name Dose Route Start Last Admin Trade Name Freq PRN Reason Stop Dose Admin Aspirin 324 mg 05/21/21 10:26 05/21/21 10:31 Aspirin 81 Mg Tab.Chew PO 05/21/21 10:27 324 mg ONETIME ONE Administration - Radiology Interpretation Free Text/Narrative:: CXR: negative, no acute findings - Re-Assessments/Exams Free Text/Narrative Re-Assessment/Exam: 05/21/21 10:34 0 Wells Criteria for PE rule out. No CT indicated. Oxygen saturation is 98% on RA. Patient had denied coughing, but has coughed twice since here that I have heard. Patient does report he smokes. Lungs are clear. Patient denies coughing making pain worse. No radiation of pain. 05/21/21 11:26 Patient reports his pain is almost gone. He reports that he only came in because his boss and fiance told him he should. He reports he would not have come in otherwise. He reports he feels fine and ready to go home. All labs unremarkable. Departure - Departure Time of Disposition: 11:28 Disposition: Home, Self-Care 01 Condition: Fair Clinical Impression: Atypical chest pain Instructions: Nonspecific Chest Pain, Adult, [id number] Additional Instructions: Followup with your electromatic typist Followup with your primary care provider Return to the ER for emergencies Tylenol or Motrin for pain as needed Sepsis Event Note (ED) - Focused Exam Vital Signs: Vital Signs Temp Pulse Resp BP Pulse Ox 05/21/21 10:00 96.8 F L 57 L 20 129/83 99 - My Orders Last 24 Hours: My Active Orders 05/21/21 Chest 2V [CR] Routine - Assessment/Plan Last 24 Hours: My Active Orders 05/21/21 Chest 2V [CR] Routine Plan: PLEASE SEE RN NOTE FOR PFSH.
[2021-05-21 10:46] VITALS: BP 129/83; PULSE 57
== END 2021-05-21 11:30 | disposition home or self-care (01) ==
LOC: CC.ED 09:57
DX: R07.89 Other chest pain (principal); K21.9 Gastro-esophageal reflux disease without esophagitis; E66.9 Obesity, unspecified; Z88.0 Allergy status to penicillin; Z68.35 Body mass index [BMI] 35.0-35.9, adult; Z20.822 Contact with and (suspected) exposure to COVID-19
CPT/HCPCS: 36415; 71046; 80053; 82550; 83615; 83690; 84484; 85025; 85610; 85730; 93005; 99285-25; A9270-GY; U0002

== ENCOUNTER 2022-11-22 22:25 | Emergency (ER) | payer SELFPAY ==
[2022-11-22] MEDS ORDERED: methylPREDNISolone Sodium Succinate 125 MG/2 ML SDV IVPUSH STA (23:27)
[2022-11-22 23:31] VITALS: BP 128/87; PULSE 75
== END 2022-11-22 23:45 | disposition home or self-care (01) ==
LOC: CC.ED 22:25
DX: R07.81 Pleurodynia (principal); J06.9 Acute upper respiratory infection, unspecified; E66.9 Obesity, unspecified; Z68.38 Body mass index [BMI] 38.0-38.9, adult; Z88.0 Allergy status to penicillin; Z72.0 Tobacco use; Z20.822 Contact with and (suspected) exposure to COVID-19
CPT/HCPCS: 36415; 71046; 80053; 82550; 83615; 83690; 83735; 84484; 85025; 85610; 87804; 93005; 93010; 96374; 99284; 99285-25; J2930; U0002

== ENCOUNTER 2024-09-11 17:30 | Emergency (ER) | payer SELFPAY ==
[2024-09-11 17:32] VITALS: BP 156/90; PULSE 85
[2024-09-11] MEDS: Diphtheria,Pertussis(Acell),Tetanus Vaccine 0.5 ML Syringe IM ONE (17:58)
== END 2024-09-11 18:01 | disposition home or self-care (01) ==
LOC: CC.ED 17:30
DX: S01.511A Laceration without foreign body of lip, initial encounter (principal); F17.210 Nicotine dependence, cigarettes, uncomplicated; E66.9 Obesity, unspecified; Z23 Encounter for immunization; Z68.37 Body mass index [BMI] 37.0-37.9, adult; Z88.0 Allergy status to penicillin; W20.8XXA Other cause of strike by thrown, projected or falling object, initial encounter; Y99.0 Civilian activity done for income or pay
CPT/HCPCS: 12011; 90471; 90715; 99282-25